=== PATIENT | female | born 1980 | race Caucasian/White ===

== ENCOUNTER → 2018-09-25 06:56 | Outpatient (CLI) | payer OTHER, SELFPAY ==
[2018-09-25 08:18] LABS: Add Manual Diff / Slide Review NO; Basophils Percent Auto 0.5 % (0-2); Hematocrit 41.3 % (36-46); Hemoglobin 14.4 g/dL (12.0-16.0); Lymphocytes Percent Auto 33.8 % (25-40); Mean Corpuscular HGB Conc 34.9 % (30-36); Mean Corpuscular Hemoglobin 31.6 PG (26-34); Mean Corpuscular Volume 90.5 fL (80-100); Monocytes Percent Auto 6.1 % (3-14); Neutrophils Absolute Auto 4700 /uL (3000-5900); Neutrophils Percent Auto 57.6 % (50-75); Platelet Count 230 X10^3/uL (150-400); Red Blood Cell Count 4.57 X10^6/uL (4.0-5.2); Red Cell Distribution Width 12.8 % (11.6-14.8); White Blood Cell Count 8.1 X10^3/uL (4.5-11.0)
[2018-09-25 08:35] LABS: Alanine Aminotransferase 24 IU/L (9-52); Albumin 4.4 g/dL (3.5-5.0); Albumin Globulin Ratio 1.6 (1.0-2.8); Alkaline Phosphatase 73 U/L (38-126); Aspartate Aminotransferase 21 IU/L (14-36); BUN Creatinine Ratio 13.8 (6-22); Bilirubin Total 0.7 mg/dL (0.2-1.3); Blood Urea Nitrogen 11 mg/dL (7-17); Calcium 9.1 mg/dL (8.4-10.2); Carbon Dioxide 24 mmol/L (22-32); Chloride 104 mmol/L (98-107); Cholesterol 179 mg/dL (140-199); Estimated Glomerular Filt Rate > 60.0 mL/min (>60); Globulin 2.8 g/dL (1.7-4.1); Glucose 156 mg/dL (70-100); HDL Cholesterol 44 mg/dL (40-60); HEMOLYSIS < 15 (0-50); LDL Cholesterol Calculated 108 mg/dL (<100); Potassium 4.4 mmol/L (3.4-5.1); Sodium 140 mmol/L (137-145); Total Protein 7.2 g/dL (6.3-8.2); Triglycerides 136 mg/dL (35-150)
[2018-09-25 08:40] LABS: Hemoglobin A1C% w Est Avg Glu 6.9 % (4.0-6.0)
[2018-09-25 09:04] LABS: Thyroid Stimulating Hormone 3.65 uIU/mL (0.47-4.68)
[2018-09-25 12:19] LABS: Creatinine Urine Random 243.8 mg/dL
[2018-09-25 12:24] LABS: Microalbumi Creatinin Ratio Ur 4.5 ug/mg CR (<30); Microalbumin Urine Random 1.1 mg/dL (0-1.6)
== END ==
PROVIDERS: PCP Internal Medicine; Visit Provider Internal Medicine
DX: E03.9 Hypothyroidism, unspecified (principal); E11.9 Type 2 diabetes mellitus without complications
CPT/HCPCS: 36415; 80053; 80061; 82043; 82570; 83036; 84443; 85025

== ENCOUNTER → 2019-09-25 08:58 | Outpatient (CLI) | payer OTHER, SELFPAY ==
--- NOTE | 2019-09-25 | DI.MG.S_ITS ---
BILATERAL DIGITAL SCREENING MAMMOGRAM 3D/2D WITH CAD: 09/25/2019 CLINICAL: Routine screening. Baseline exam. Family history of breast cancer. No prior exams were available for comparison. There are scattered fibroglandular elements in both breasts. Current study was also evaluated with a Computer Aided Detection (CAD) system. There is a possible 0.6 cm irregular low density focal asymmetry in the right breast at 4 o'clock posterior depth. No other significant masses, calcifications, or other findings are seen in either breast. IMPRESSION: INCOMPLETE: NEEDS ADDITIONAL IMAGING EVALUATION The possible 0.6 cm irregular low density focal asymmetry in the right breast is indeterminate. Additional views with possible ultrasound are recommended. This exam was interpreted at Station ID: [id number]. NOTE: For mammograms, a report in lay terms will be sent to the patient. Approximately 15% of breast malignancies will not be visualized mammographically. In the management of a palpable breast mass, a negative mammogram must not discourage biopsy of a clinically suspicious lesion. Electronically Signed By: Mateus kendall/joy:09/27/2019 06:59:54 letter sent: Additional Imaging Needed ACR BI-RADS Category 0: Incomplete 3340F
== END ==
PROVIDERS: PCP Internal Medicine; Visit Provider Internal Medicine
DX: Z12.31 Encounter for screening mammogram for malignant neoplasm of breast (principal); Z80.3 Family history of malignant neoplasm of breast
CPT/HCPCS: 77063; 77067

== ENCOUNTER → 2019-10-13 12:40 | Outpatient (CLI) | payer OTHER, SELFPAY ==
--- NOTE | 2019-10-13 | DI.MG.S_ITS ---
UNILATERAL RIGHT DIGITAL DIAGNOSTIC MAMMOGRAM 3D/2D WITH ADDITIONAL VIEWS: 10/13/2019 CLINICAL: Additional evaluation requested from prior study. Comparison is made to exam dated: 09/25/2019 [facility]. There are scattered fibroglandular elements in right breast. The previously described 0.6 cm irregular low density focal asymmetry in the right breast at 4 o'clock posterior depth persists but appears less prominent. No other significant masses or calcifications are seen in the breast. IMPRESSION: INCOMPLETE: NEEDS ADDITIONAL IMAGING EVALUATION The 0.6 cm irregular low density focal asymmetry in the right breast is indeterminate. Further evaluation with sonogram is recommended which is scheduled to immediately follow this examination. This exam was interpreted at Station ID: [id number]. NOTE: For mammograms, a report in lay terms will be sent to the patient. Approximately 15% of breast malignancies will not be visualized mammographically. In the management of a palpable breast mass, a negative mammogram must not discourage biopsy of a clinically suspicious lesion. Electronically Signed By: Mateus Cruz M.D. aty/:10/13/2019 13:25:19 ACR BI-RADS Category 0: Incomplete 3340F
--- NOTE | 2019-10-13 13:46 | DI.US.S_ITS ---
ULTRASOUND OF RIGHT BREAST AND AXILLA: 10/13/2019 CLINICAL: Patient returns today to evaluate a focal asymmetry in the right breast. Comparison is made to exams dated: 10/13/2019 mammogram and 09/25/2019 mammogram - [facility]. Color flow and real-time ultrasound of the right breast axilla were performed. Pendleton scale images of the real-time examination were reviewed. There is a 0.6 cm x 0.3 cm x 0.6 cm irregular mass with an indistinct and angular margin in the right breast at 3 o'clock posterior depth 6 cm from the nipple. This irregular mass is hypoechoic and heterogeneously echogenic. This correlates with mammography findings. Color flow imaging demonstrates that there is no vascularity present. No significant abnormalities were seen sonographically in the right axilla. IMPRESSION: SUSPICIOUS OF MALIGNANCY The 0.6 cm x 0.3 cm x 0.6 cm irregular mass in the right breast is suspicious of malignancy. An ultrasound guided biopsy is recommended. Findings and recommendations were discussed with the patient by Dr. Jj during today's visit. This exam was interpreted at Station ID: [id number]. Electronically Signed By: Mateus Cruz M.D. aty/:10/13/2019 14:25:21 letter sent: Biopsy Required Ultrasound BI-RADS: 4 Suspicious for malignancy
== END ==
PROVIDERS: PCP Internal Medicine; Visit Provider Internal Medicine
DX: R92.8 Other abnormal and inconclusive findings on diagnostic imaging of breast (principal); N63.15 Unspecified lump in the right breast, overlapping quadrants
CPT/HCPCS: 76642; 77065; G0279

== ENCOUNTER → 2019-11-05 07:42 | Outpatient (CLI) | payer OTHER, SELFPAY ==
--- NOTE | 2019-11-05 | DI.US.S_ITS ---
ULTRASOUND GUIDED BIOPSY RIGHT BREAST USING VACUUM DEVICE WITH MARKING DEVICE INSERTED AND POST DIGITAL MAMMOGRAPHIC IMAGIN11/05/2019 CLINICAL: Right breast mass. PATIENT CONSENT: Risks (minor bleeding, infection, vasovagal reaction and repeat procedure), benefits and alternatives were explained to the patient and written informed consent was obtained. Correlation is made to exams dated: 10/13/2019 ultrasound, 10/13/2019 mammogram, and 09/25/2019 mammogram - [facility]. An ultrasound guided biopsy using real-time ultrasound was performed for the concerning mass located in the right breast at 3 o'clock 6 cm from the nipple. This was described on the previous ultrasound report. The skin was prepped in the usual manner. 5 mL of 1% lidocaine and 5 mL of 1% lidocaine with epinephrine was used for local anesthesia. A skin ricky was made in the breast. The abnormality was approached from the lateral aspect. A 13 gauge biopsy needle was placed adjacent to the abnormality under ultrasound guidance. Once the needle was documented to be in the correct location, six specimens were obtained using the Mammotome biopsy system. A Vision biopsy marker clip was inserted into the biopsy cavity. A skin adhesive was applied to the access site. Post procedure digital mammographic imaging demonstrates the location device at the superior aspect of the biopsy cavity/postbiopsy changes. The specimens were sent to the laboratory for pathological analysis. IMPRESSION: ULTRASOUND GUIDED BIOPSY BENIGN Ultrasound guided biopsy of the mass in the right breast at 3 o'clock 6 cm from the nipple was successful with no apparent post procedure complications. Final pathology results per pathologist Dr. 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 Background breast with fibrocystic change including usual ductal hyerplasia, columnar cell change/columnar cell hyperplasia, and mild stromal fibrosis. Negative for atypia carcinoma in situ, and malignancy. Pathology findings are concordant with imaging. A follow-up diagnostic mammogram in 6 months with targeted ultrasound is recommended. These results will be communicated to the patient's referring provider. This exam was interpreted at Station ID: [id number]. Jan Jj M.D. ecl/:11/15/2019 16:20:59
--- NOTE | 2019-11-05 | PATH_ITS ---
[facility] Accession Number: [id number] . 01 Material submitted: . breast - RIGHT BREAST MASS 3:00 6 CM FN . 01 Clinical history: . RIGHT BREAST MASS . 01 Diagnosis: Right Breast, Mass At 3 O'clock, 6 cm From The Nipple, Biopsy: Breast parenchyma with pseudoangiomatous hyperplasia. Background breast with fibrocystic change including usual ductal hyperplasia, columnar cell change/columnar cell hyperplasia, and mild stromal fibrosis. Negative for atypia, carcinoma in situ, and malignancy. MNT 11/09/2019 1047 Local . 01 Comment: Clinical and Radiographic correlation is necessary. Deeper H/E levels are examined. . 01 Electronically signed: . Kathrine Esquivel MD, Pathologist NPI- [id number] . 01 Gross description: . Received in formalin, labeled Bx breast perc w mirtha, are multiple fragments of fibrofatty tissue (2.2 x 1.0 x 0.1 cm in aggregate). Entirely submitted in cassette A1. Note: The specimen was placed in formalin on 11/05/2019 with no time given. The approximate total fixation time in formalin is calculated to be 38 hours and 30 minutes. ([id number]) /FRR 11/06/2019 0959 Local . 01 Microscopic: . Microcalcifications and/or polarizable crystal material are not identified on H/E tissue examination. . 01 Pathologist provided ICD-10: N63.10 . 01 CPT . 290864 Performed at: 01 [facility] [address], [place], [place] [id number] MD Justus Guevara MD Phone: [phone]
--- NOTE | 2019-11-05 | DI.MG.S_ITS ---
UNILATERAL RIGHT DIGITAL DIAGNOSTIC MAMMOGRAM POST-NEEDLE BIOPSY: 11/05/2019 CLINICAL: Right breast mass post biopsy clip imaging. Comparison is made to exams dated: 11/05/2019 ultrasound biopsy, 10/13/2019 ultrasound, 10/13/2019 mammogram, and 09/25/2019 mammogram - [facility]. There are scattered fibroglandular elements in right breast. Post procedure digital mammographic imaging demonstrates the location device/biopsy clip within the medial right breast. IMPRESSION: POST PROCEDURE MAMMOGRAM FOR MARKER PLACEMENT Post procedure digital mammographic imaging demonstrates the location device/biopsy clip within the medial right breast. This exam was interpreted at Station ID: [id number]. NOTE: For mammograms, a report in lay terms will be sent to the patient. Approximately 15% of breast malignancies will not be visualized mammographically. In the management of a palpable breast mass, a negative mammogram must not discourage biopsy of a clinically suspicious lesion. Electronically Signed By: Jan Jj M.D. ecl/:11/09/2019 08:41:48 ACR BI-RADS Category Post-procedure mammogram for marker placement
== END ==
PROVIDERS: PCP Internal Medicine; Visit Provider Internal Medicine
DX: N60.31 Fibrosclerosis of right breast (principal)
CPT/HCPCS: 19083; 77065

== ENCOUNTER → 2020-08-22 09:15 | Outpatient (CLI) | payer OTHER, SELFPAY ==
--- NOTE | 2020-08-22 | DI.US.S_ITS ---
ULTRASOUND OF RIGHT BREAST: 08/22/2020 CLINICAL: 6 month follow-up biopsy. Comparison is made to exams dated: 08/22/2020 mammogram, 11/05/2019 mammogram, 11/05/2019 ultrasound biopsy, and 10/13/2019 [facility]. Real-time ultrasound of the right breast was performed on the areas of interest. Pendleton scale images of the real-time examination were reviewed. There is a 0.5 cm mass in the right breast at 3 o'clock middle depth. This mass is hypoechoic. There is an associated biopsy clip. IMPRESSION: BENIGN There is no sonographic evidence of malignancy. The 0.5 cm mass in the right breast which was previously biopsied and demonstrated to represent fibrocystic change including usual ductal hyerplasia, columnar cell change/columnar cell hyperplasia, and mild stromal fibrosis, is benign. A 1 year screening mammogram is recommended. This exam was interpreted at Station ID: [id number]. Electronically Signed By: Amanda sesay/:08/22/2020 11:48:15 letter sent: Normal Exam Ultrasound BI-RADS: 2 Benign
--- NOTE | 2020-08-22 | DI.MG.S_ITS ---
BILATERAL DIGITAL DIAGNOSTIC MAMMOGRAM 3D/2D SHORT-TERM FOLLOW-UP: 08/22/2020 CLINICAL: Patient returns for a short term follow up of the right breast, due for bilateral exam. Comparison is made to exams dated: 11/05/2019 mammogram, 11/05/2019 ultrasound biopsy, 10/13/2019 ultrasound, and 10/13/2019 mammogram - [facility]. There are scattered fibroglandular elements in both breasts. There is a biopsy clip in the right breast. No significant masses, calcifications, or other findings are seen in either breast. IMPRESSION: INCOMPLETE: NEEDS ADDITIONAL IMAGING EVALUATION A targeted ultrasound of the right breast is recommended to evaluate the previous biopsy site and will be performed immediately following this exam. This exam was interpreted at Station ID: [id number]. NOTE: For mammograms, a report in lay terms will be sent to the patient. Approximately 15% of breast malignancies will not be visualized mammographically. In the management of a palpable breast mass, a negative mammogram must not discourage biopsy of a clinically suspicious lesion. Electronically Signed By: Amanda Medina M.D. lk/:08/22/2020 09:59:05 ACR BI-RADS Category 0: Incomplete 3340F
== END ==
PROVIDERS: PCP Internal Medicine; Referring Provider Internal Medicine; Visit Provider Internal Medicine
DX: R92.8 Other abnormal and inconclusive findings on diagnostic imaging of breast (principal); N60.31 Fibrosclerosis of right breast
CPT/HCPCS: 76642; 77066; G0279

== ENCOUNTER → 2021-02-09 10:12 | Outpatient (CLI) | payer OTHER, SELFPAY ==
--- NOTE | 2021-02-09 10:14 | DI.RAD.S_ITS ---
PROCEDURE: XR HAND RT 2V INDICATIONS: PAIN IN RT/LT HAND TECHNIQUE: 2 views of the hand(s) acquired. COMPARISON: None. FINDINGS: Bones: No fractures or dislocations. Carpal bones are normally aligned. No suspicious bony lesions. Soft tissues: No suspicious soft tissue calcifications. IMPRESSION: No fracture. No osseous lesion. If symptoms and/or clinical suspicion for pathology persists, further assessment with repeat radiographs (7-10 days) or advanced imaging (e.g. CT, MRI or bone scan) should be considered. Dictated by: Dawn George MD, PhD on 02/09/2021 at 14:41 Approved by: Dawn George MD, PhD on 02/09/2021 at 14:42
--- NOTE | 2021-02-09 10:14 | DI.RAD.S_ITS ---
PROCEDURE: XR HAND LT 2V INDICATIONS: PAIN IN RT/LT HAND TECHNIQUE: 2 views of the hand(s) acquired. COMPARISON: None. FINDINGS: Bones: No fractures or dislocations. Carpal bones are normally aligned. No suspicious bony lesions. Soft tissues: No suspicious soft tissue calcifications. IMPRESSION: No fracture. No osseous lesion. If symptoms and/or clinical suspicion for pathology persists, further assessment with repeat radiographs (7-10 days) or advanced imaging (e.g. CT, MRI or bone scan) should be considered. Dictated by: Dawn George MD, PhD on 02/09/2021 at 14:40 Approved by: Dawn George MD, PhD on 02/09/2021 at 14:41
== END ==
PROVIDERS: PCP Internal Medicine; Referring Provider Student in an Organized Health Care Education/Training Program; Visit Provider Student in an Organized Health Care Education/Training Program
DX: M79.641 Pain in right hand (principal); M79.642 Pain in left hand
CPT/HCPCS: 73120

== ENCOUNTER → 2021-08-24 15:37 | Outpatient (CLI) | payer OTHER, SELFPAY ==
--- NOTE | 2021-08-24 | DI.MG.S_ITS ---
BILATERAL DIGITAL SCREENING MAMMOGRAM 3D/2D WITH CAD: 08/24/2021 CLINICAL: Routine screening. Family history of breast cancer. Comparison is made to exams dated: 08/22/2020 ultrasound, 08/22/2020 mammogram, 11/05/2019 mammogram, 10/13/2019 mammogram, and 09/25/2019 mammogram - [facility]. There are scattered fibroglandular elements in both breasts. Current study was also evaluated with a Computer Aided Detection (CAD) system. There is a biopsy clip in the right breast. No significant masses, calcifications, or other findings are seen in either breast. There has been no significant interval change. IMPRESSION: NEGATIVE There is no mammographic evidence of malignancy. A 1 year screening mammogram is recommended. This exam was interpreted at Station ID: [id number]. NOTE: For mammograms, a report in lay terms will be sent to the patient. Approximately 15% of breast malignancies will not be visualized mammographically. In the management of a palpable breast mass, a negative mammogram must not discourage biopsy of a clinically suspicious lesion. Electronically Signed By: Brendon Reynolds M.D., jr/joy:08/24/2021 16:19:30 letter sent: Normal Exam ACR BI-RADS Category 1: Negative [id number]
== END ==
PROVIDERS: PCP Internal Medicine; Referring Provider Internal Medicine; Visit Provider Internal Medicine
DX: Z12.31 Encounter for screening mammogram for malignant neoplasm of breast (principal); Z80.3 Family history of malignant neoplasm of breast
CPT/HCPCS: 77063; 77067

== ENCOUNTER → 2022-02-06 09:18 | Outpatient (CLI) | payer OTHER, SELFPAY | PROVIDERS: PCP Internal Medicine; Visit Provider Nurse Practitioner Family | DX: R10.9 Unspecified abdominal pain (principal) | CPT/HCPCS: 87086 ==

== ENCOUNTER 2022-02-06 10:20 | Emergency (ER) | payer OTHER, SELFPAY ==
[2022-02-06 10:45] VITALS: BP 143/81; PULSE 91; RESP 16; TEMP 36.6; O2SAT 98; BMI 34.4
[2022-02-06 10:58] LABS: Appearance Urine UA CLEAR; Bilirubin Urine UA NEGATIVE (NEGATIVE); Color Urine UA YELLOW; Glucose Urine UA 2+ g/dL (Negative); Ketones Urine UA TRACE (NEGATIVE); Leukocyte Esterase Urine UA NEGATIVE (NEGATIVE); Nitrite Urine UA NEGATIVE (Negative); Occult Blood Urine UA 1+ (Negative); Protein Urine UA NEGATIVE (Negative); Specific Gravity Urine UA 1.015 (1.000-1.035); Urobilinogen Urine UA 0.2 E.U./dL (0.2)
[2022-02-06 10:59] LABS: pH Urine UA 5.5 (4.5-8.0)
[2022-02-06 11:03] LABS: Bacteria Urine None Seen; Culture Indicated Urine Cult Not Indicated; RBC Urine None Seen (0-5/HPF); Urine Comments Microscopic Normal; WBC Urine None Seen (0-5/HPF)
[2022-02-06 11:07] VITALS: BP 141/85; PULSE 86; RESP 18; TEMP 36.7; O2SAT 98
[2022-02-06 11:20] LABS: Pregnancy Test Urine Negative (Negative)
--- NOTE | 2022-02-06 11:31 | ED.BACK ---
HPI - Back Pain/Injury General Chief Complaint: Urogenital-Female Stated Complaint: Back pain- R/O kidney stones- sent by [facility] Time Seen by Provider: 02/06/22 11:03 Source: patient History of Present Illness HPI Narrative: Patient sent here from urgent care. Patient had sudden onset at 3:00 a.m. this morning/night for left flank pain. No nausea sweating. No hematuria no urinary complaints. No vomiting. No abdominal pain or chest pain. Patient states pain much better now. No prior history of kidney stones. No numbness tingling or weakness. Related Data Previous Rx's Medication Instructions Recorded montelukast 10 mg tablet 10 mg PO QDAY #90 tab 09/23/17 (Singulair) clindamycin phosphate 1 % topical 0 TOPICAL BID PRN #30 ml 12/29/17 solution Verio Test Strips 1 unit TOP 5XD #150 str 04/02/18 naproxen 500 mg tablet 500 mg PO BID #30 tab 05/14/18 fluticasone propionate 50 2 spray NASAL DAILY #9.9 gram 10/07/18 mcg/actuation nasal spray,suspension glyburide 2.5 mg tablet 2.5 mg PO HS #90 tab 10/07/18 levothyroxine 75 mcg tablet 75 mcg PO QAM #90 tab 10/07/18 (Synthroid) metformin 850 mg tablet 850 mg PO QDAY #90 tab 10/07/18 Allergies Allergy/AdvReac Type Severity Reaction Status Date / Time bupropion [BUPROPION] Allergy Mild HIVES Unverified 02/06/22 09:31 miconazole [MICONAZOLE] Allergy Mild swelling Unverified 02/06/22 09:31 and itching Review of Systems Review of Systems Narrative: GENERAL: Denies chills, fatigue, malaise, fever, sweats. HEENT: Denies sinus pain, ear pain, sore throat RESPIRATORY: Denies dyspnea, cough CARDIOVASCULAR: Denies chest pain, palpitations GASTROINTESTINAL: Denies nausea, vomiting, abdominal pain : Denies dysuria, frequency, hematuria MUSCULOSKELETAL: denies muscle or bony pain, positive flank pain SKIN: Denies rash, skin lesions NEUROLOGIC: Denies weakness, numbness ROS Unobtainable: All systems reviewed & are unremarkable except as noted in HPI and below Patient History Medical History (Updated 02/06/22 @ 14:00 by Jarrett Poe MD) Abnormal Pap smear of cervix (~1996) Ankle pain (~2014) Depression (~1997) Dysfunctional uterine bleeding (~2000) Heavy menstrual period (~1990) Hemorrhoid (~1997) Irregular menstrual cycle (~2000) Obstructive sleep apnea of adult (~01/2019) Painful menstrual periods (~1992) Plantar warts (~2007) Seasonal allergies (~1987) Snoring (~11/2016) Vision disorder Surgical History Anesthesia Status post tubal ligation (09/14/04) Family History Father Age: 71 Colon cancer Type 2 diabetes mellitus Grandmother Breast CA Mother Age: 66 Hypertension Stroke Grandfather Age: 78 Mesothelioma Cancer Grandmother Age: 95 Diabetes mellitus Sister Age: 47 Mental health problem Sister Age: 40 Cervical cancer Social History Smoking Status: Never smoker Smoking Status: Never smoker alcohol intake frequency: holidays/special occasions only Substance Use Type: does not use Exam Narrative Exam Narrative: GENERAL: in no distress, not toxic not dyspneic HEAD: Normocephalic. EYES: Pupils equal round No scleral icterus. ENT: Mucous membranes moist. NECK: Trachea midline. CARDIOVASCULAR: Regular rate and rhythm without murmurs RESPIRATORY: Clear to auscultation. Breath sounds equal bilaterally. No wheezes, rales, or rhonchi. GASTROINTESTINAL: Abdomen soft, non-tender EXTREMITIES: No gross deformities. BACK: No flank tenderness. No rash, no CVA tenderness NEURO: AOx4. SKIN: Warm and dry PSYCH: Not anxious, is cooperative Initial Vital Signs Initial Vital Signs: Vital Signs Temperature 98 F 02/06/22 10:45 Pulse Rate 91 H 02/06/22 10:45 Respiratory Rate 16 02/06/22 10:45 Blood Pressure 143/81 H 02/06/22 10:45 Pulse Oximetry 98 02/06/22 10:45 Course Course Course Narrative: No new issues during course of stay Orders Ordered: ED Orders 02/06/22 10:55 Urinalysis and Microscopic Stat 02/06/22 11:14 Test Urine Stat 02/06/22 11:33 CT kidney ureter bladder (KUB) Stat 02/06/22 13:00 CBC Auto Diff [Complete Blood Count AUTO DIFF] Stat CMP [Comprehensive Metabolic Panel] Stat Reevaluation(s) Reevaluation #1: Patient states pain 3/10. Does not want anything for pain. Reviewed results with patient and my discussion with Dr. Canales. Understands results and likely what happened this morning. She desires discharge home. Time: 13:58 Consultations Consultation #1: Spoke with Dr. Canales, urology, he has reviewed patient's laboratory studies and imaging. He has looked at the CT scan images. He does not feel this is acute. Patient has had hydronephrosis for or while. Unrelated to today's symptoms. However likely passed a small kidney stone. Appropriate for discharge home. Follow-up in his office. Time: 13:56 Vital Signs Vital signs: Vital Signs - 8 hr 02/06/22 10:45 02/06/22 11:07 02/06/22 14:10 Temperature 98 F 98.0 F Pulse Rate 91 H 86 70 Respiratory Rate 16 18 18 Blood Pressure 143/81 H 141/85 H 135/79 Pulse Oximetry 98 98 MDM - Back Pain/Injury Differential Diagnosis Differential diagnosis: Likely renal colic, pyelonephritis and other (Kidney stone/ureteral stone) Lab Data Result diagrams: 02/06/22 13:00 02/06/22 13:00 Labs: Lab Results 02/06/22 02/06/22 02/06/22 Range/Units 10:55 11:14 13:00 WBC 12.1 H (4.5-11.0) X10^3/uL RBC 4.53 (4.0-5.2) X10^6/uL Hgb 14.2 (12.0-16.0) g/dL Hct 41.0 (36-46) % MCV 90.7 (80-100) fL MCH 31.5 (26-34) PG MCHC 34.7 (30-36) % RDW 12.7 (11.6-14.8) % Plt Count 255 (150-400) X10^3/uL Neut % (Auto) 84.3 H (50-75) % Lymph % (Auto) 10.9 L (25-40) % [place] % (Auto) 4.1 (3-14) % Eos % (Auto) 0.1 L (2-4) % Baso % (Auto) 0.6 (0-2) % Neut # (Auto) 82062 H (5244-1757) /uL Lymph # (Auto) 1300 (8339-4620) /uL [place] # (Auto) 500 (0-900) /uL Eos # (Auto) 0 (0-450) /uL Baso # (Auto) 100 (0-100) /uL Sodium (137-145) mmol/L Potassium (3.4-5.1) mmol/L Chloride (98-107) mmol/L Carbon Dioxide (22-32) mmol/L BUN (7-17) mg/dL Creatinine (0.52-1.04) mg/dL Estimated GFR (>60) mL/min BUN/Creatinine Ratio (6-22) Glucose (70-100) mg/dL Calcium (8.4-10.2) mg/dL Total Bilirubin (0.2-1.3) mg/dL AST (14-36) IU/L ALT (<35) IU/L Alkaline Phosphatase (38-126) U/L Total Protein (6.3-8.2) g/dL Albumin (3.5-5.0) g/dL Globulin (1.7-4.1) g/dL Albumin/Globulin Ratio (1.0-2.8) Urine Color Yellow Urine Appearance Clear Urine pH 5.5 (4.5-8.0) Ur Specific [place] 1.015 (1.000-1.035) Urine Protein Negative (Negative) Urine Glucose (UA) 2+ H (Negative) g/dL Urine Ketones Trace H (NEGATIVE) Urine Occult Blood 1+ H (Negative) Urine Nitrate Negative (Negative) Urine Bilirubin Negative (NEGATIVE) Urine Urobilinogen 0.2 (0.2) E.U./dL Ur Leukocyte Esterase Negative (NEGATIVE) Urine RBC None seen (0-5/HPF) Urine WBC None seen (0-5/HPF) Urine Bacteria None seen (None) Ur Culture Indicated? Cult not indicated Micro UA Comment Microscopic normal Urine Test Negative (Negative) 02/06/22 Range/Units 13:00 WBC (4.5-11.0) X10^3/uL RBC (4.0-5.2) X10^6/uL Hgb (12.0-16.0) g/dL Hct (36-46) % MCV (80-100) fL MCH (26-34) PG MCHC (30-36) % RDW (11.6-14.8) % Plt Count (150-400) X10^3/uL Neut % (Auto) (50-75) % Lymph % (Auto) (25-40) % [place] % (Auto) (3-14) % Eos % (Auto) (2-4) % Baso % (Auto) (0-2) % Neut # (Auto) (5518-5941) /uL Lymph # (Auto) (0146-5470) /uL [place] # (Auto) (0-900) /uL Eos # (Auto) (0-450) /uL Baso # (Auto) (0-100) /uL Sodium 137 (137-145) mmol/L Potassium 4.5 (3.4-5.1) mmol/L Chloride 106 (98-107) mmol/L Carbon Dioxide 21 L (22-32) mmol/L BUN 13 (7-17) mg/dL Creatinine 1.00 (0.52-1.04) mg/dL Estimated GFR > 60.0 (>60) mL/min BUN/Creatinine Ratio 13.0 (6-22) Glucose 201 H (70-100) mg/dL Calcium 9.4 (8.4-10.2) mg/dL Total Bilirubin 0.5 (0.2-1.3) mg/dL AST 26 (14-36) IU/L ALT 23 (<35) IU/L Alkaline Phosphatase 77 (38-126) U/L Total Protein 7.6 (6.3-8.2) g/dL Albumin 4.7 (3.5-5.0) g/dL Globulin 2.9 (1.7-4.1) g/dL Albumin/Globulin Ratio 1.6 (1.0-2.8) Urine Color Urine Appearance Urine pH (4.5-8.0) Ur Specific [place] (1.000-1.035) Urine Protein (Negative) Urine Glucose (UA) (Negative) g/dL Urine Ketones (NEGATIVE) Urine Occult Blood (Negative) Urine Nitrate (Negative) Urine Bilirubin (NEGATIVE) Urine Urobilinogen (0.2) E.U./dL Ur Leukocyte Esterase (NEGATIVE) Urine RBC (0-5/HPF) Urine WBC (0-5/HPF) Urine Bacteria (None) Ur Culture Indicated? Micro UA Comment Urine Test (Negative) Imaging Data CT scan - abdomen/pelvis: Radiologist's Impression: [address] [address] [address] Scan Report Signed Patient: Zarina Padilla MR#: [id number] : 1980 Acct:[id number] Age/Sex: 41 / F Date of Service: 02/06/22 Loc: ED Accession Number: [id number] ?? Procedure: CT kidney ureter bladder (KUB) Ordering Provider: Jarrett Poe MD PROCEDURE:? CT KIDNEY URETER BLADDER (KUB) ? INDICATIONS:? Left flank pain ? TECHNIQUE:? Axial sections were acquired from the lung bases to the pubic symphysis.? Coronal and sagittal reformats were performed.? For radiation dose reduction, the following was used: ?automated exposure control, adjustment of mA and/or kV according to patient size.? ? COMPARISON:? None. ? FINDINGS:? Image quality:? Excellent.? ? Lung bases:? Unremarkable.? Tiny hiatal hernia.? Heart:? Normal size.? Trace pericardial effusion. ? URINARY: Right Kidney: ? No stones or hydronephrosis.? Right Ureter:? No hydroureter.? ? Left Kidney:? There is a 4 mm nonobstructive stone in left kidney.? Tlhszuhp-qn-cdawjd left hydronephrosis and perinephric stranding.? A small amount of perinephric fluid is present.? No obstructive stone is identified.? Left Ureter:? No ureteral stones or hydroureter.? ? Bladder:? Normal wall thickness. No stones. ? ? ? ABDOMEN: Liver:? Normal in size.? Hepatic steatosis.? ? Gallbladder:? Unremarkable.? ? Biliary ducts:? Unremarkable.? ? Pancreas:? Unremarkable.? ? Spleen:? Unremarkable.? ? Adrenal Glands:? Unremarkable.? ? ? Stomach and Bowel:? Stomach, small bowel loops, and colon are unremarkable.? Peritoneum:? No abnormal intraperitoneal fluid.? No free air.? ? Ventral Wall: ? Fat containing umbilical hernia.? Abdominal Nodes:? No enlarged retroperitoneal or mesenteric lymph nodes.? Vessels:? Aorta and inferior vena cava are normal in size.? ? PELVIS: Pelvic Organs:? Uterus with an IUD.? Ovaries are unremarkable.? There is no pathological pelvic fluid.? ? Pelvic Nodes: Unremarkable. Miscellaneous: No inguinal hernias are seen. ? ? ? Bones:? Unremarkable. ? IMPRESSION:? ? 1. Umzmbves-zv-dmhqbd left hydronephrosis and perinephric stranding with a small amount of perinephric fluid.? No obstructive stone is identified.? The left ureter is normal in caliber.? The CT findings suggest high-grade left UPJ obstruction. ? 2. A 4 mm nonobstructive stone in the inferior pole of the left kidney. ? 3. Hepatic steatosis.? ? ? The result was discussed with Dr. Poe. ? Dictated by: Carmelina Knox M.D. on 02/06/2022 at 11:48 ? ? Approved by: Carmelina Knox M.D. on 02/06/2022 at 11:57 ? MDM Narrative Medical decision making narrative: Appropriate for discharge home. Laboratory studies and imaging otherwise reassuring. I did review with urologist. CT and results are reassuring according to him. Appropriate for discharge home and follow-up in his office. Patient likely passed small kidney stone today. Return precautions reviewed patient. She desires discharge home. No prescriptions indicated. Discharge Plan Departure Patient Disposition: Home Clinical Impression: Acute left flank pain, Hydronephrosis Instructions: Hydronephrosis -- Adult, DI for Kidney Stones Activity Restrictions/Additional Instructions: Call provided urology office, Dr. Canales, today or tomorrow for office follow-up appointment next week. Keep well hydrated. Return if worse or any questions or concerns. May use ibuprofen for pain. May continue home medications. Prescriptions: No Action montelukast [Singulair] 10 MG tablet 10 mg PO QDAY Qty: 90 3RF clindamycin phosphate 1 % solution 0 Topical BID PRNQty: 30 0RF Verio Test Strips 1 unit TOP 5XD Qty: 150 3RF naproxen 500 mg tablet 500 mg PO BID Qty: 30 0RF glyburide 2.5 mg tablet 2.5 mg PO HS Qty: 90 3RF levothyroxine [Synthroid] 75 mcg tablet 75 mcg PO QAM Qty: 90 3RF metformin 850 mg tablet 850 mg PO QDAY Qty: 90 3RF fluticasone propionate 50 mcg/actuation spray,suspension 2 spray NASAL DAILY Qty: 9.9 3RF Rx Instructions: administer into each nostril Referrals: Jarrett Canales MD [Physician] - Ariana Olvia ARNP [Primary Care Provider] -
--- NOTE | 2022-02-06 11:33 | DI.CT.S_ITS ---
PROCEDURE: CT KIDNEY URETER BLADDER (KUB) INDICATIONS: Left flank pain TECHNIQUE: Axial sections were acquired from the lung bases to the pubic symphysis. Coronal and sagittal reformats were performed. For radiation dose reduction, the following was used: automated exposure control, adjustment of mA and/or kV according to patient size. COMPARISON: None. FINDINGS: Image quality: Excellent. Lung bases: Unremarkable. Tiny hiatal hernia. Heart: Normal size. Trace pericardial effusion. URINARY: Right Kidney: No stones or hydronephrosis. Right Ureter: No hydroureter. Left Kidney: There is a 4 mm nonobstructive stone in left kidney. Qtvjlbdi-ob-airhvo left hydronephrosis and perinephric stranding. A small amount of perinephric fluid is present. No obstructive stone is identified. Left Ureter: No ureteral stones or hydroureter. Bladder: Normal wall thickness. No stones. ABDOMEN: Liver: Normal in size. Hepatic steatosis. Gallbladder: Unremarkable. Biliary ducts: Unremarkable. Pancreas: Unremarkable. Spleen: Unremarkable. Adrenal Glands: Unremarkable. Stomach and Bowel: Stomach, small bowel loops, and colon are unremarkable. Peritoneum: No abnormal intraperitoneal fluid. No free air. Ventral Wall: Fat containing umbilical hernia. Abdominal Nodes: No enlarged retroperitoneal or mesenteric lymph nodes. Vessels: Aorta and inferior vena cava are normal in size. PELVIS: Pelvic Organs: Uterus with an IUD. Ovaries are unremarkable. There is no pathological pelvic fluid. Pelvic Nodes: Unremarkable. Miscellaneous: No inguinal hernias are seen. Bones: Unremarkable. IMPRESSION: 1. Ykyprvps-vu-vlomki left hydronephrosis and perinephric stranding with a small amount of perinephric fluid. No obstructive stone is identified. The left ureter is normal in caliber. The CT findings suggest high-grade left UPJ obstruction. 2. A 4 mm nonobstructive stone in the inferior pole of the left kidney. 3. Hepatic steatosis. The result was discussed with Dr. Poe. Dictated by: Carmelina Knox M.D. on 02/06/2022 at 11:48 Approved by: Carmelina Knox M.D. on 02/06/2022 at 11:57
[2022-02-06 13:16] LABS: Add Manual Diff / Slide Review NO; Basophils Absolute Auto 100 /uL (0-100); Basophils Percent Auto 0.6 % (0-2); Eosinophils Absolute Auto 0 /uL (0-450); Eosinophils Percent Auto 0.1 % (2-4); Hemoglobin 14.2 g/dL (12.0-16.0); Lymphocytes Absolute Auto 1300 /uL (1100-4500); Lymphocytes Percent Auto 10.9 % (25-40); Mean Corpuscular HGB Conc 34.7 % (30-36); Mean Corpuscular Hemoglobin 31.5 PG (26-34); Mean Corpuscular Volume 90.7 fL (80-100); Monocytes Absolute Auto 500 /uL (0-900); Monocytes Percent Auto 4.1 % (3-14); Neutrophils Absolute Auto 10200 /uL (1500-7000); Neutrophils Percent Auto 84.3 % (50-75); Platelet Count 255 X10^3/uL (150-400); Red Blood Cell Count 4.53 X10^6/uL (4.0-5.2); Red Cell Distribution Width 12.7 % (11.6-14.8); White Blood Cell Count 12.1 X10^3/uL (4.5-11.0)
[2022-02-06 13:27] LABS: Alanine Aminotransferase 23 IU/L (<35); Albumin 4.7 g/dL (3.5-5.0); Albumin Globulin Ratio 1.6 (1.0-2.8); Alkaline Phosphatase 77 U/L (38-126); Aspartate Aminotransferase 26 IU/L (14-36); Bilirubin Total 0.5 mg/dL (0.2-1.3); Blood Urea Nitrogen 13 mg/dL (7-17); Calcium 9.4 mg/dL (8.4-10.2); Carbon Dioxide 21 mmol/L (22-32); Chloride 106 mmol/L (98-107); Estimated Glomerular Filt Rate > 60.0 mL/min (>60); Globulin 2.9 g/dL (1.7-4.1); Glucose 201 mg/dL (70-100); HEMOLYSIS < 15 (0-50); Potassium 4.5 mmol/L (3.4-5.1); Sodium 137 mmol/L (137-145); Total Protein 7.6 g/dL (6.3-8.2)
[2022-02-06 14:10] VITALS: BP 135/79; PULSE 70; RESP 18
== END 2022-02-06 14:12 | disposition home or self-care (01) ==
PROVIDERS: Emergency Provider Emergency Medicine; PCP Internal Medicine
DX: N13.30 Unspecified hydronephrosis (principal); N20.0 Calculus of kidney; R10.9 Unspecified abdominal pain
CPT/HCPCS: 74176; 80053; 81001; 81025; 85025; 87086; 99281; 99284

== ENCOUNTER → 2022-03-15 12:29 | Outpatient (CLI) | payer OTHER, SELFPAY ==
--- NOTE | 2022-03-15 12:29 | DI.US.S_ITS ---
PROCEDURE: US RENAL COMPLETE INDICATIONS: kidney stones TECHNIQUE: Real-time scanning was performed of the kidneys and bladder, with image documentation. COMPARISON: Merged With [facility], CT, CT KIDNEY URETER BLADDER (KUB), 02/06/2022, 11:33. FINDINGS: Kidneys: Kidneys are normal in size. Right kidney measures 12.0 cm long; left kidney measures 13.8 cm long. Right renal cortical thickness is 1.3 cm; left renal cortical thickness is 1.0 cm. The left kidney has moderate hydronephrosis. There is a peripelvic cyst versus pelviectasis measuring 6.8 x 4.9 cm. Renal cortical echotexture is normal. No hydronephrosis or nephrolithiasis. No suspicious solid mass lesions. Bladder: The bladder is empty. There are bilateral ureteral jets. Miscellaneous: No free pelvic fluid. IMPRESSION: Moderate left hydronephrosis and pelviectasis versus parapelvic cyst. The appearance is similar to prior CT on 02/06/2022. Dictated by: Ahmet Anguiano M.D. on 03/15/2022 at 14:16 Approved by: Ahmet Anguiano M.D. on 03/15/2022 at 14:22
== END ==
PROVIDERS: PCP Internal Medicine; Referring Provider Urology; Visit Provider Urology
DX: N13.30 Unspecified hydronephrosis (principal); R10.9 Unspecified abdominal pain
CPT/HCPCS: 76770

== ENCOUNTER → 2022-03-28 13:42 | Outpatient (CLI) | payer OTHER, SELFPAY ==
--- NOTE | 2022-03-28 13:43 | DI.NM.S_ITS ---
PROCEDURE: NM RENAL FUNCTION W LASIX RADIOPHARMACEUTICAL: 9.8 mCi Tc-99m MAG3 IV and 40 mg furosemide IV. INDICATIONS: Rule out UPJ obstruction left TECHNIQUE: The patient was hydrated orally before the examination was begun. After intravenous administration of Tc-99m MAG3, posterior abdominal radionuclide angiogram and sequential (1 minute each frame) renal images were obtained. A time-activity curve for each kidney was generated and analyzed. To evaluate for obstruction, the patient was given 40 mg furosemide via slow intravenous injection after the start of the examination. Sequential images were obtained for up to an additional 20 minutes. COMPARISON: [facility], CT, CT KIDNEY URETER BLADDER (KUB), 02/06/2022, 11:33. FINDINGS: Perfusion: There is normal vascular flow to both kidneys. Morphology: Both kidneys are normal in size and shape. There is dilatation of the left renal calices and renal pelvis. No dilatation identified in the right collecting system. The ureters and bladder fill with tracer, and appear normal. Function: Left kidney demonstrates delayed cortical tracer uptake with stsn-vw-rgke activity of 9 minutes. Right kidney demonstrates normal cortical tracer uptake, with mpmb-iv-tjux activity of 4 minutes. The right kidney contributes 50% of total renal function. The left kidney contributes 50% of total renal function. Lasix stimulation: After diuretic administration, there is prompt clearance of tracer activity from the right renal collecting system. There is reduced clearance of tracer activity from the left renal calices and renal pelvis. The half-time of emptying of tracer activity from the right pelvicaliceal system is 10 minutes. The half-time of emptying from the left pelvicaliceal system is 16 minutes. Normal emptying half-times are less than 10 minutes; borderline ranges are from 10 to 20 minutes. IMPRESSION: Findings consistent with left UPJ obstruction. Dictated by: Dawn George MD, PhD on 03/28/2022 at 16:06 Approved by: Dawn George MD, PhD on 03/28/2022 at 16:12
== END ==
LOC: NUCM 13:43
PROVIDERS: PCP Internal Medicine; Referring Provider Urology; Visit Provider Urology
DX: N13.30 Unspecified hydronephrosis (principal); Z87.898 Personal history of other specified conditions
CPT/HCPCS: 78708; A9562

== ENCOUNTER → 2022-07-09 13:51 | Outpatient (CLI) | payer OTHER, SELFPAY ==
--- NOTE | 2022-07-09 13:52 | DI.NM.S_ITS ---
PROCEDURE: [place] RENAL FUNCTION W LASIX RADIOPHARMACEUTICAL: 9.8 mCi Tc-99m MAG3 IV and 40 mg furosemide IV. INDICATIONS: Left renal pelvic dilation left flank pain TECHNIQUE: The patient was hydrated orally before the examination was begun. After intravenous administration of Tc-99m MAG3, posterior abdominal radionuclide angiogram and sequential (1 minute each frame) renal images were obtained. A time-activity curve for each kidney was generated and analyzed. To evaluate for obstruction, the patient was given 40 mg furosemide via slow intravenous injection after the start of the examination. Sequential images were obtained for up to an additional 20 minutes. COMPARISON: [place], [place], [place] RENAL FUNCTION W LASIX, 03/28/2022, 14:03. FINDINGS: Perfusion: There is normal vascular flow to both kidneys. Morphology: Left greater right pelviectasis. The ureters and bladder fill with tracer, and appear normal. Function: Both kidneys demonstrate slightly delayed time to peak activity between 7-8 minutes. The right kidney contributes 46 % of total renal function. The left kidney contributes 54 % of total renal function. Lasix stimulation: After diuretic administration, there is prompt clearance of radiotracer from the renal collecting system in the right kidney. Time of T half in the right is at 18 minutes (4 minutes after administration of the Lasix). There is marked delay in radiotracer clearance in the left kidney. Time of T half is greater than 30 minutes. Retention of tracer is seen in the renal cortex and the dilated renal pelvis Normal emptying half-times are less than 10 minutes; borderline ranges are from 10 to 20 minutes. IMPRESSION: Normal split function. Mildly delayed time to max for both kidneys at 7.5 minutes. Dilated left renal pelvis without ureteral dilation. Lasix stimulation without prompt clearance in the left kidney, compatible with obstruction. Normal radiotracer clearance in the right kidney following Lasix. Dictated by: Andrea Valdes M.D. on 07/09/2022 at 16:44 Approved by: Andrea Valdes M.D. on 07/10/2022 at 9:00
== END ==
PROVIDERS: PCP Internal Medicine; Referring Provider Urology; Visit Provider Urology
DX: N28.89 Other specified disorders of kidney and ureter (principal); R10.9 Unspecified abdominal pain
CPT/HCPCS: 78708; A9562

== ENCOUNTER → 2022-08-26 09:14 | Outpatient (CLI) | payer OTHER, SELFPAY ==
--- NOTE | 2022-08-26 | DI.MG.S_ITS ---
BILATERAL DIGITAL SCREENING MAMMOGRAM 3D/2D WITH CAD: 08/26/2022 CLINICAL: Routine screening. Family history of breast cancer. Comparison is made to exams dated: 08/24/2021 mammogram, 08/22/2020 mammogram, 11/05/2019 mammogram, and 09/25/2019 mammogram - [facility]. There are scattered areas of fibroglandular density in both breasts (category b / 25%-50% glandular tissue). Current study was also evaluated with a Computer Aided Detection (CAD) system. There is a biopsy clip in the right breast. No significant masses, calcifications, or other findings are seen in either breast. There has been no significant interval change. IMPRESSION: NEGATIVE There is no mammographic evidence of malignancy. A 1 year screening mammogram is recommended. Based on the Tyrer Cuzick model (a risk assessment model) the patient's lifetime risk is 9.6% and her 10 year risk is 1.4%. According to the ACR, ACS, and NCCN guidelines, an annual breast MRI exam along with mammogram is recommended if the patient's lifetime risk is 20% or greater. This exam was interpreted at Station ID: [id number]. NOTE: For mammograms, a report in lay terms will be sent to the patient. Approximately 15% of breast malignancies will not be visualized mammographically. In the management of a palpable breast mass, a negative mammogram must not discourage biopsy of a clinically suspicious lesion. Electronically Signed By: Amanda sesay/joy:08/26/2022 10:14:51 letter sent: Normal Exam ACR BI-RADS Category 1: Negative [id number]
== END ==
PROVIDERS: PCP Internal Medicine; Referring Provider Internal Medicine; Visit Provider Internal Medicine
DX: Z12.31 Encounter for screening mammogram for malignant neoplasm of breast (principal); Z80.3 Family history of malignant neoplasm of breast
CPT/HCPCS: 77063; 77067

== ENCOUNTER → 2022-10-11 12:19 | Outpatient (CLI) | payer OTHER, SELFPAY ==
--- NOTE | 2022-10-11 12:20 | DI.NM.S_ITS ---
PROCEDURE: [place] RENAL FUNCTION W LASIX RADIOPHARMACEUTICAL: 10.5 mCi Tc-99m MAG3 IV and 40 mg furosemide IV. INDICATIONS: Dilated left renal pelvis question of obstruction TECHNIQUE: The patient was hydrated orally before the examination was begun. After intravenous administration of Tc-99m MAG3, posterior abdominal radionuclide angiogram and sequential (1 minute each frame) renal images were obtained. A time-activity curve for each kidney was generated and analyzed. To evaluate for obstruction, the patient was given 40 mg furosemide via slow intravenous injection after the start of the examination. Sequential images were obtained for up to an additional 20 minutes. COMPARISON: [place], [place], [place] RENAL FUNCTION W LASIX, 03/28/2022, 14:03. [place], [place] RENAL FUNCTION W LASIX, 07/09/2022, 14:07. [facility], US, US RENAL COMPLETE, 03/15/2022, 12:35. [facility], CT, CT KIDNEY URETER BLADDER (KUB), 02/06/2022, 11:33. FINDINGS: Perfusion: There is normal vascular flow to both kidneys. Morphology: Both kidneys are normal in size and shape. Dilated left renal collecting system is seen. No dilated right renal collecting system. The ureters are not well seen. The bladder fill with tracer, and appear normal. Function: Both kidneys demonstrate normal cortical tracer uptake, with qjqt-xr-mina activity ranging from 3 to 5 minutes. The right kidney contributes 45.5% of total renal function. The left kidney contributes 54.5% of total renal function. Lasix stimulation: After diuretic administration, there is prompt clearance of tracer activity from the renal collecting systems in both kidneys. The half-time of emptying of tracer activity from the right pelvicaliceal system is 14.4 minutes. The half-time of emptying from the left pelvicaliceal system is 6.4 minutes. Normal emptying half-times are less than 10 minutes; borderline ranges are from 10 to 20 minutes. IMPRESSION: 1. Mild left UPJ obstruction. T1/2 of the left kidney is 14.4 minutes. 2. No right renal obstruction. 3. Split renal function: Right kidney 45.5%; left kidney 55.5%. Dictated by: Carmelina Knox M.D. on 10/11/2022 at 14:24 Approved by: Carmelina Knox M.D. on 10/11/2022 at 14:34
== END ==
PROVIDERS: PCP Internal Medicine; Referring Provider Urology; Visit Provider Urology
DX: N13.5 Crossing vessel and stricture of ureter without hydronephrosis (principal)
CPT/HCPCS: 78708; A9562

== ENCOUNTER → 2022-11-06 16:54 | Outpatient (CLI) | payer OTHER, SELFPAY ==
--- NOTE | 2022-11-06 16:55 | DI.US.S_ITS ---
PROCEDURE: US RENAL COMPLETE INDICATIONS: DILATED LEFT RENAL PELVIS ?OBSTRUCTION TECHNIQUE: Real-time scanning was performed of the kidneys and bladder, with image documentation. COMPARISON: [facility], CT, CT KIDNEY URETER BLADDER (KUB), 02/06/2022, 11:33. [facility], US, US RENAL COMPLETE, 03/15/2022, 12:35. FINDINGS: Kidneys: Redemonstration of moderate left hydronephrosis, not significantly changed compared to the prior study. Left kidney measures 11.1 cm in length. No evidence for renal stones or suspicious solid mass lesions. Renal cortex measures 1.6 cm in thickness. There is also left hydroureter proximally measuring up to 3.5 cm. More distal segments of the left ureter not able to be assessed secondary to overlying bowel gas. Right kidney measures 11.5 cm. No hydronephrosis. No evidence for renal stones or suspicious solid lesions. Renal cortex measures 1.3 cm in thickness. Bladder: Pre-void bladder volume is 47 mL. Post-void residual is 3 mL. Pre-void images demonstrate no intraluminal masses or stones. On pre-void images, bilateral ureteral jets were not visualized with color Doppler interrogation. (Of note, ureteral jets may not be detectable in up to 25% of cases due to insufficient differences in specific gravity between ureteral and bladder urine). Miscellaneous: No free pelvic fluid. Incidental note of diffusely increased echotexture of the liver without focal abnormalities consistent with chronic hepatocellular disease/hepatic steatosis. IMPRESSION: Persistent moderate left hydronephrosis and left hydroureter. This appears relatively similar compared to prior studies. No evidence for renal stones identified on the left. Unremarkable sonographic evaluation of the right kidney. Incidental note of hepatic steatosis. Dictated by: Mateus Cruz M.D. on 11/07/2022 at 10:31 Approved by: Mateus Cruz M.D. on 11/07/2022 at 10:42
== END ==
PROVIDERS: PCP Internal Medicine; Referring Provider Urology; Visit Provider Urology
DX: N28.89 Other specified disorders of kidney and ureter (principal); N13.30 Unspecified hydronephrosis; K76.0 Fatty (change of) liver, not elsewhere classified
CPT/HCPCS: 76770

== ENCOUNTER → 2023-04-25 07:51 | Outpatient (CLI) | payer OTHER, SELFPAY ==
--- NOTE | 2023-04-25 07:51 | DI.NM.S_ITS ---
PROCEDURE: [place] RENAL FUNCTION W LASIX RADIOPHARMACEUTICAL: 10.1 mCi Tc-99m MAG3 IV and 40 mg furosemide IV. INDICATIONS: Dilated renal pelvis question UPJ obstruction TECHNIQUE: The patient was hydrated orally before the examination was begun. After intravenous administration of Tc-99m MAG3, posterior abdominal radionuclide angiogram and sequential (1 minute each frame) renal images were obtained. A time-activity curve for each kidney was generated and analyzed. To evaluate for obstruction, the patient was given 40 mg furosemide via slow intravenous injection after the start of the examination. Sequential images were obtained for up to an additional 20 minutes. COMPARISON: [facility], CT, CT KIDNEY URETER BLADDER (KUB), 02/06/2022, 11:33. [place] RENAL FUNCTION W LASIX, 07/09/2022, 14:07. [place] RENAL FUNCTION W LASIX, 03/28/2022, 14:03. [place] RENAL FUNCTION W LASIX, 10/11/2022, 12:31. [facility], RENAL COMPLETE, 11/06/2022, 17:01. FINDINGS: Perfusion: There is normal vascular flow to both kidneys. Morphology: Both kidneys are normal in size and shape. The left renal collecting system is dilated. No dilated collecting system in right kidney. The right ureter and bladder fill with tracer, and appear normal. Left ureter is not well seen. Function: Both kidneys demonstrate normal cortical tracer uptake, with echj-id-nnam activity ranging from 3 to 5 minutes. The right kidney contributes 48% of total renal function. The left kidney contributes 52% of total renal function. Lasix stimulation: After diuretic administration, there is prompt clearance of tracer activity from the renal collecting systems in both kidneys. The half-time of emptying of tracer activity from the right pelvicaliceal system is 5.1 minutes. The half-time of emptying from the left pelvicaliceal system is 10 minutes. Normal emptying half-times are less than 10 minutes; borderline ranges are from 10 to 20 minutes. IMPRESSION: 1. Dilated left renal collecting system, but no significant left renal obstruction. 2. Stable split renal function. The right kidney contributes 48% of total renal function. The left kidney contributes 52% of total renal function. Dictated by: Carmelina Knox M.D. on 04/25/2023 at 10:11 Approved by: Carmelina Knox M.D. on 04/25/2023 at 14:18
== END ==
PROVIDERS: PCP Internal Medicine; Referring Provider Urology; Visit Provider Urology
DX: N28.89 Other specified disorders of kidney and ureter (principal)
CPT/HCPCS: 78708; A9562

== ENCOUNTER 2023-04-25 13:29 | Emergency (ER) | payer OTHER, SELFPAY ==
[2023-04-25 13:40] VITALS: BP 112/79; PULSE 109; RESP 14; TEMP 37.2; O2SAT 97; BMI 31.6
--- NOTE | 2023-04-25 13:54 | DI.CT.S_ITS ---
PROCEDURE: CT CERVICAL SPINE WO CON INDICATIONS: fall yesterday c7 tender TECHNIQUE: Noncontrast 3 mm thick sections acquired from the skull base to the T4 level. Sagittal and coronal reformats were then constructed. For radiation dose reduction, the following was used: automated exposure control, adjustment of mA and/or kV according to patient size. COMPARISON: None. FINDINGS: Image quality: Excellent. Bones: No fractures or dislocations. Visualized superior ribs are intact. Soft tissues: Prevertebral soft tissues are normal in thickness. No paravertebral hematomas. No apical pneumothoraces. IMPRESSION: No acute osseous abnormality. Dictated by: Camilo Duval M.D. on 04/25/2023 at 14:11 Approved by: Camilo Duval M.D. on 04/25/2023 at 14:14
--- NOTE | 2023-04-25 13:54 | DI.CT.S_ITS ---
PROCEDURE: CT HEAD/BRAIN WO CON INDICATIONS: headache, neck pain, fall yesterday TECHNIQUE: Noncontrast 4.5 mm thick angled axial sections acquired from the foramen magnum to the vertex, with coronal and sagittal reformats. For radiation dose reduction, the following was used: automated exposure control, adjustment of mA and/or kV according to patient size. COMPARISON: None. FINDINGS: Image quality: Excellent. CSF spaces: Basal cisterns are patent. No extra-axial fluid collections. Ventricles are normal in size and shape. Brain: No midline shift. No intracranial masses or hemorrhage. Pendleton-white matter interface is normal. Skull and face: Calvarium and visualized facial bones are intact, without suspicious lesions. Sinuses: Trace mucosal thickening in the left maxillary sinus. Paranasal sinuses are otherwise clear. Mastoids are clear. IMPRESSION: No acute intracranial abnormality. Dictated by: Camilo Duval M.D. on 04/25/2023 at 14:09 Approved by: Camilo Duval M.D. on 04/25/2023 at 14:11
--- NOTE | 2023-04-25 13:57 | PC.NURSE ---
C-collar applied in triage and pt put in a WC
--- NOTE | 2023-04-25 14:08 | ED.FALL ---
HPI - Fall <Ana Maria Sal PA-C - Last Filed: 04/25/23 18:48> General Chief Complaint: Fall Stated Complaint: Fell off deck, back/neck/shoulder/head pain Time Seen by Provider: 04/25/23 13:53 Source: patient Mode of arrival: Ambulatory History of Present Illness HPI Narrative: This is a 42-year-old woman who presents with concern for burning sensation in her low back after she had a fall yesterday and some neck pain as well. Patient also had headache. Patient states that she was on a deck and her bosses dog which is quite large jumped up on her and she lost her balance and went backwards landing 1st on her back and buttocks and then on her elbow and right shoulder as well as hitting her head and neck. She states that the deck is about 1 ft off the ground and she landed on grass but the ground was extremely hard. Since that time she is had a headache and some neck pain in her low mid neck she is also had a burning sensation in her low back on both sides of her lumbar region. She had a pretty intense headache last night and this morning but states that this has improved. She is not noticed any weakness has been moving her legs and arms normally she also denies numbness or tingling, vision change, loss of consciousness or any other symptoms. Related Data Home Medications Medication Instructions Recorded Confirmed glyburide 2.5 mg tablet 5 mg PO HS 03/19/22 11/12/22 metformin 850 mg tablet 500 mg PO QDAY 03/19/22 11/12/22 Previous Rx's Medication Instructions Recorded Verio Test Strips 1 unit topical 5XD Diabetes ##150 04/02/18 fluticasone propionate 50 2 spray intranasal DAILY #9.9 grams 10/07/18 mcg/actuation nasal spray,suspension levothyroxine 75 mcg tablet 75 mcg PO QAM #90 tabs 10/07/18 (Synthroid) baclofen 10 mg tablet 10 mg PO TID PRN muscle spasm 5 04/25/23 days #15 tabs lidocaine 5 % topical patch 1 patch topical DAILY 15 days #15 04/25/23 ea Allergies Allergy/AdvReac Type Severity Reaction Status Date / Time bupropion [BUPROPION] Allergy Mild HIVES Verified 04/25/23 13:44 miconazole [MICONAZOLE] Allergy Mild swelling Verified 04/25/23 13:44 and itching Review of Systems <Ana Maria Sal PA-C - Last Filed: 04/25/23 18:48> Review of Systems Narrative: See HPI Patient History <Ana Maria Sal PA-C - Last Filed: 04/25/23 18:48> Medical History Abnormal Pap smear of cervix (~1996) Ankle pain (~2014) Depression (~1997) Dilated renal pelvis Dysfunctional uterine bleeding (~2000) Heavy menstrual period (~1990) Hemorrhoid (~1997) History of flank pain History of renal calculi Irregular menstrual cycle (~2000) Obstructive sleep apnea of adult (~01/2019) Painful menstrual periods (~1992) Plantar warts (~2007) Seasonal allergies (~1987) Snoring (~11/2016) Vision disorder Surgical History Anesthesia Status post tubal ligation (09/14/04) Family History Father Age: 72 Colon cancer Type 2 diabetes mellitus Grandmother Breast CA Mother Age: 67 Hypertension Stroke Grandfather Age: 79 Mesothelioma Cancer Grandmother Age: 96 Diabetes mellitus Sister Age: 48 Mental health problem Sister Age: 41 Cervical cancer Social History marital status: number of children: 3 Smoking Status: Never smoker Smoking Status: Never smoker alcohol intake frequency: a few times a month Substance Use Type: does not use Exam <Ana Maria Sal PA-C - Last Filed: 04/25/23 18:48> Narrative Exam Narrative: GENERAL: 42 year old patient appears stated age. Well-developed patient, in mild distress. HEAD: Atraumatic. Normocephalic. EYES: Pupils equal round and reactive. Extraocular motions intact. No scleral icterus. No injection or drainage. ENT: Nose without bleeding, purulent drainage. Airway patent. NECK: There is mild midline tenderness C5 through 7. Mild paraspinal muscle tenderness of the C-spine. Trachea midline. Non tender CARDIOVASCULAR: Regular rate and rhythm without murmurs, gallops, or rubs. RESPIRATORY: Clear to auscultation. Breath sounds equal bilaterally. No wheezes, rales, or rhonchi. GASTROINTESTINAL: Abdomen soft, non-tender, nondistended. EXTREMITIES: Also see back. Normal active range of motion of arms and shoulders with normal strength. No edema or joint tenderness. BACK: There is tenderness in the mid lumbar region L4-L5, there is paraspinal muscle tenderness and tightness, in the lumbar region, there is also tenderness over the SI joints. Strength is intact 5/5 lower extremities with flexion and extension at the hip and knee and with plantar flexion and dorsiflexion.. Otherwise Nontender without deformity or crepitance. No flank tenderness. NEURO: AOx3. SKIN: No rash or erythema of visible areas Initial Vital Signs Initial Vital Signs: Vital Signs Temperature 98.9 F 04/25/23 13:40 Pulse Rate 109 H 04/25/23 13:40 Respiratory Rate 14 04/25/23 13:40 Blood Pressure 112/79 04/25/23 13:40 Pulse Oximetry 97 04/25/23 13:40 Oxygen Delivery Method Room Air 04/25/23 13:40 <DO Alfred Schwartz Last Filed: 04/26/23 18:15> Initial Vital Signs Initial Vital Signs: Vital Signs Temperature 98.9 F 04/25/23 13:40 Pulse Rate 109 H 04/25/23 13:40 Respiratory Rate 14 04/25/23 13:40 Blood Pressure 112/79 04/25/23 13:40 Pulse Oximetry 97 04/25/23 13:40 Oxygen Delivery Method Room Air 04/25/23 13:40 Course <Ana Maria Sal PA-C - Last Filed: 04/25/23 18:48> Orders Ordered: ED Orders 04/25/23 13:54 CT cervical spine wo con Stat CT head/brain wo con Stat 04/25/23 15:09 XR lumbar spine 2-3V Stat Vital Signs Vital signs: Vital Signs - 8 hr 04/25/23 13:40 04/25/23 16:01 Temperature 98.9 F Pulse Rate 109 H 98 H Respiratory Rate 14 19 Blood Pressure 112/79 118/78 Pulse Oximetry 97 98 Oxygen Delivery Method Room Air Room Air <DO Alfred Schwartz Last Filed: 04/26/23 18:15> Orders Ordered: ED Orders 04/25/23 13:54 CT cervical spine wo con Stat CT head/brain wo con Stat 04/25/23 15:09 XR lumbar spine 2-3V Stat Vital Signs Vital signs: Vital Signs - 8 hr 04/25/23 13:40 04/25/23 16:01 Temperature 98.9 F Pulse Rate 109 H 98 H Respiratory Rate 14 19 Blood Pressure 112/79 118/78 Pulse Oximetry 97 98 Oxygen Delivery Method Room Air Room Air MDM - Fall <Ana Maria Sal PA-C - Last Filed: 04/25/23 18:48> Differential Diagnosis Differential diagnosis: Likely concussion without loss of consciousness and other (Post head injury, neck injury, lumbar injury, muscle spasm) Medical Records Attestation: I reviewed the patient's medical records. Imaging Data CT scan - head: My Impression: Agree with Radiology interpretation Radiologist's Impression: [address] [address] [address] Scan Report Signed Patient: Zarina Padilla MR#: [id number] : 1980 Acct:[id number] Age/Sex: 42 / F Date of Service: 04/25/23 Loc: ED Accession Number: [id number] ?? Procedure: CT head/brain wo con Ordering Provider: Ana Maria Sal P.A-C PROCEDURE:? CT HEAD/BRAIN WO CON ? INDICATIONS:? headache, neck pain, fall yesterday ? TECHNIQUE:? Noncontrast 4.5 mm thick angled axial sections acquired from the foramen magnum to the vertex, with coronal and sagittal reformats.? For radiation dose reduction, the following was used:? automated exposure control, adjustment of mA and/or kV according to patient size.? ? COMPARISON:? None. ? FINDINGS:? Image quality:? Excellent.? ? CSF spaces:? Basal cisterns are patent.? No extra-axial fluid collections.? Ventricles are normal in size and shape.? ? Brain:? No midline shift.? No intracranial masses or hemorrhage.? Pendleton-white matter interface is normal.? ? Skull and face:? Calvarium and visualized facial bones are intact, without suspicious lesions.? ? Sinuses:? Trace mucosal thickening in the left maxillary sinus.? Paranasal sinuses are otherwise clear.? Mastoids are clear.? ? IMPRESSION:? No acute intracranial abnormality. ? ? Dictated by: Camilo Duval M.D. on 04/25/2023 at 14:09 ? ? Approved by: Camilo Duval M.D. on 04/25/2023 at 14:11?? CT - cervical spine: My Impression: Agree with Radiology interpretation Radiologist's Impression: [address] [address] [address] Scan Report Signed Patient: Zarina Padilla MR#: [id number] : 1980 Acct:[id number] Age/Sex: 42 / F Date of Service: 04/25/23 Loc: ED Accession Number: [id number] ?? Procedure: CT cervical spine wo con Ordering Provider: Ana Maria Sal P.A-C PROCEDURE:? CT CERVICAL SPINE WO CON ? INDICATIONS:? fall yesterday c7 tender ? TECHNIQUE:? Noncontrast 3 mm thick sections acquired from the skull base to the T4 level.? Sagittal and coronal reformats were then constructed.? For radiation dose reduction, the following was used:? automated exposure control, adjustment of mA and/or kV according to patient size.? ? COMPARISON:? None. ? FINDINGS:? Image quality:? Excellent.? ? Bones:? No fractures or dislocations.? Visualized superior ribs are intact.? ? Soft tissues:? Prevertebral soft tissues are normal in thickness.? No paravertebral hematomas.? No apical pneumothoraces.? ? ? IMPRESSION:? No acute osseous abnormality. ? ? ? Dictated by: Camilo Duval M.D. on 04/25/2023 at 14:11 ? ? Approved by: Camilo Duval M.D. on 04/25/2023 at 14:14?? XR L spine: My Impression: Agree with Radiology interpretation Radiologist's Impression: [address] [address] XRay Report Signed Patient: aZrina Padilla MR#: [id number] : 1980 Acct:[id number] Age/Sex: 42 / F Date of Service: 04/25/23 Loc: ED Accession Number: [id number] ?? Procedure: XR lumbar spine 2-3V Ordering Provider: Ana Maria Sal P.A-C PROCEDURE:? XR LUMBAR SPINE 2-3V ? INDICATIONS:? fall yesterday, LBP ? TECHNIQUE:? 3 views of the lumbar spine were acquired.? ? COMPARISON:? None. ? FINDINGS:? ? Bones:? 5 [id number] vertebrae are present.? There is normal bony alignment.? No vertebral body compression fractures.? No suspicious bony lesions.? ? Soft tissues:? Overlying bowel gas pattern is normal.? No suspicious soft tissue calcifications.? ? ? IMPRESSION:? No acute compression fracture or spondylolisthesis in lumbar spine. ? ? Dictated by: Ilya Hussein M.D. on 04/25/2023 at 15:22 ? ? Approved by: Ilya Hussein M.D. on 04/25/2023 at 15:23?? Treatment and disposition Shared decision making:: Shared decision-making was used in determining the patient's plan of care plan for outpatient follow-up. MDM Narrative Medical decision making narrative: This is a generally well-appearing 42-year-old woman who presents with concern for low back discomfort bilaterally as well as neck pain and headache after falling yesterday off of a deck about 1 ft high and landing on her back and head. No loss of consciousness. Given patient's midline neck pain and headache CT head and neck noncontrast are obtained and are unremarkable. Patient has no other concerning symptoms for concussion, L-spine x-ray is also obtained given her bilateral low back discomfort. This is also unremarkable. Patient is prescribed baclofen to be used as needed advised heat, ice alternating, lidocaine is also prescribed, she is advised to follow up closely with her primary care provider return precautions provided, follow-up plan discussed, all questions answered. Discharge Plan Departure Patient Disposition: Home Clinical Impression: Fall, Acute neck pain, Low back pain Activity Restrictions/Additional Instructions: *You have been diagnosed with [fall, pain] *What to do: *Please continue to take your regular medications as directed. [2 ] New medication prescriptions sent to your pharmacy: [Lidocaine topical and muscle relaxer baclofen] [ ] New medication written as a paper prescription [ ] No new medications given *Please follow up with your primary care provider in 2-3 days, call for an appointment. Let them know you were seen in the Emergency Department and that we ask that you be seen in follow up. We will electronically transmit a record of today's note if your PCP is in our system. Imaging performed today in the emergency department of your neck and head did not show any concerning findings. I suspect that you have some soft tissue injury/muscle muscle strain secondary or fall. X-rays of your lumbar spine did not show any acute concerning findings, we also did CT scan of your head and neck which also looked okay. I suspect that your injuries are certainly due to her fall but there is nothing concerning on imaging today, I encourage you to use heat, alternating with ice or heat or ice depending on what feels better, you can try the lidocaine patches as well for pain/discomfort and I have also prescribed muscle relaxers which you can try to see if this is helpful as well. You can also take Tylenol for pain. I strongly encourage you to follow-up closely with your primary care provider. *If you do not have a primary care provider please contact the [facility] Resource line at [phone]. They will ask some questions about your medical history and help get you set up with a doctor in the community. *Return to Emergency Department if you should have any new, worsening or concerning symptoms, such as [fever greater than 101 F, shaking chills, worsening pain, persistent vomiting or other bothersome symptoms] Prescriptions: New baclofen 10 mg tablet 10 mg PO TID PRN (Reason: muscle spasm) 5 Days Qty: 15 0RF lidocaine 5 % adhesive patch,medicated 1 patch topical DAILY 15 Days Qty: 15 0RF Rx Instructions: leave on most painful area for up to 12 hrs No Action Verio Test Strips 1 unit TOP 5XD Qty: 150 3RF levothyroxine [Synthroid] 75 mcg tablet 75 mcg PO QAM Qty: 90 3RF fluticasone propionate 50 mcg/actuation spray,suspension 2 spray NASAL DAILY Qty: 9.9 3RF Rx Instructions: administer into each nostril glyburide 2.5 mg tablet 5 mg PO HS metformin 850 mg tablet 500 mg PO QDAY Referrals: Ariana Oliva ARNP [Primary Care Provider] - Stand Alone Forms: Patient Portal/API <Barbara Coulter DO - Last Filed: 04/26/23 18:15> Cosign ED Attending Jocelinature Attestation: I was immediately available in the department for consultation. Documentation has been reviewed.
--- NOTE | 2023-04-25 15:09 | DI.RAD.S_ITS ---
PROCEDURE: XR LUMBAR SPINE 2-3V INDICATIONS: fall yesterday, LBP TECHNIQUE: 3 views of the lumbar spine were acquired. COMPARISON: None. FINDINGS: Bones: 5 [id number] vertebrae are present. There is normal bony alignment. No vertebral body compression fractures. No suspicious bony lesions. Soft tissues: Overlying bowel gas pattern is normal. No suspicious soft tissue calcifications. IMPRESSION: No acute compression fracture or spondylolisthesis in lumbar spine. Dictated by: Ilya Hussein M.D. on 04/25/2023 at 15:22 Approved by: Ilya Hussein M.D. on 04/25/2023 at 15:23
--- NOTE | 2023-04-25 15:10 | PC.NURSE ---
C-spine cleared by REYNALDO Sal. C-collar removed
[2023-04-25 16:01] VITALS: BP 118/78; PULSE 98; RESP 19; O2SAT 98
== END 2023-04-25 16:02 | disposition home or self-care (01) ==
PROVIDERS: Emergency Provider Student in an Organized Health Care Education/Training Program; PCP Internal Medicine
DX: M54.2 Cervicalgia (principal); M54.50 Low back pain, unspecified; N28.89 Other specified disorders of kidney and ureter; W17.89XA Other fall from one level to another, initial encounter
CPT/HCPCS: 70450; 72100; 72125; 78708; 99281; 99283; A9562

== ENCOUNTER → 2023-05-06 14:26 | Outpatient (CLI) | payer OTHER, SELFPAY ==
[2023-05-06 15:27] LABS: BUN Creatinine Ratio 16.9 (6-22); Blood Urea Nitrogen 11 mg/dL (7-17); Calcium 8.9 mg/dL (8.4-10.2); Carbon Dioxide 26 mmol/L (22-32); Chloride 104 mmol/L (98-107); Estimated Glomerular Filt Rate > 60 mL/min (>60); Glucose 144 mg/dL (70-100); HEMOLYSIS < 15 (0-50); Sodium 139 mmol/L (137-145)
== END ==
PROVIDERS: PCP Internal Medicine; Referring Provider Urology; Visit Provider Urology
DX: N28.89 Other specified disorders of kidney and ureter (principal)
CPT/HCPCS: 36415; 80048

== ENCOUNTER → 2023-08-26 12:33 | Outpatient (CLI) | payer OTHER, SELFPAY ==
--- NOTE | 2023-08-26 | DI.US.S_ITS ---
PROCEDURE: US PELVIC COMPLETE INDICATIONS: LEFT PELVIC PAIN TECHNIQUE: Real-time scanning was performed of the pelvic organs, with image documentation. Additional endovaginal scanning was necessary due to incomplete visualization of the adnexal and endometrial structures by transabdominal scanning. Color and spectral Doppler of the ovaries was performed. COMPARISON: [facility], US, PELVIC COMPLETE, 06/14/2015, 17:11. FINDINGS: Uterus: Uterus is anteverted and normal in size at 9.0 x 5.0 x 5.7 cm. The myometrium is homogeneous. The endometrium measures 3 mm combined thickness. IUD within the central endometrium. A couple of intramural fibroids within the mid to upper uterine segment measuring 2.1 x 1.8 x 1.7 cm and 1.1 x 1.1 x 1.2 cm. Ovaries: The right ovary measures 2.8 x 2.0 x 1.3 cm, with a calculated ovarian volume of 4 cc. The left ovary measures 2.6 x 3.3 x 2.2 cm, with a calculated ovarian volume of 10 cc. The ovaries have a normal sonographic appearance. Less than 12 follicles can be seen in each ovary. No adnexal masses are seen. Patent arterial waveforms. Other: No pathologic free abdominal or pelvic fluid. IMPRESSION: IUD within the central uterus. A couple of small intramural fibroids, largest measuring 2.1 cm. We strive to produce accurate, complete, and clear reports of imaging services. To assist us in improving patient care, this report was composed using standard report templates and voice recognition software. Therefore, it may contain abnormal punctuation, insertions and/or omissions. Occasional wrong-word or sound-alike substitutions may occur. Though we review the report and make efforts to correct it, we do recommend that the report be read carefully in proper context to recognize any text inaccuracies. Dictated by: Shiraz Galvan M.D. on 08/26/2023 at 14:17 Approved by: Shiraz Galvan M.D. on 08/26/2023 at 14:18
== END ==
PROVIDERS: PCP Internal Medicine; Referring Provider Registered Nurse; Visit Provider Registered Nurse
DX: R10.32 Left lower quadrant pain (principal)
CPT/HCPCS: 76830; 76856; 93975

== ENCOUNTER → 2023-08-27 08:32 | Outpatient (CLI) | payer OTHER, SELFPAY ==
--- NOTE | 2023-08-27 | DI.MG.S_ITS ---
BILATERAL DIGITAL SCREENING MAMMOGRAM 3D/2D WITH CAD: 08/27/2023 CLINICAL: Routine screening. Family history of breast cancer. Comparison is made to exams dated: 08/26/2022 mammogram, 08/24/2021 mammogram, 08/22/2020 mammogram, and 08/22/2020 [facility]. There are scattered areas of fibroglandular density in both breasts (category b / 25%-50% glandular tissue). Current study was also evaluated with a Computer Aided Detection (CAD) system. There is possible developing architectural distortion in the left breast posterior depth lateral region seen on the craniocaudal view only. Right breast biopsy clip. No other significant masses, calcifications, or other findings are seen in either breast. IMPRESSION: INCOMPLETE: NEEDS ADDITIONAL IMAGING EVALUATION The possible developing architectural distortion in the left breast is indeterminate. Additional views with possible ultrasound are recommended. Based on the Tyrer Cuzick model (a risk assessment model) the patient's lifetime risk is 9.6% and her 10 year risk is 1.5%. According to the ACR, ACS, and NCCN guidelines, an annual breast MRI exam along with mammogram is recommended if the patient's lifetime risk is 20% or greater. This exam was interpreted at Station ID: [id number]. NOTE: For mammograms, a report in lay terms will be sent to the patient. Approximately 15% of breast malignancies will not be visualized mammographically. In the management of a palpable breast mass, a negative mammogram must not discourage biopsy of a clinically suspicious lesion. Electronically Signed By: Camilo Duval M.D. [facility] [place]/:08/27/2023 11:12:23 letter sent: Additional Imaging Needed ACR BI-RADS Category 0: Incomplete 3340F
== END ==
PROVIDERS: PCP Internal Medicine; Referring Provider Internal Medicine; Visit Provider Internal Medicine
DX: Z12.31 Encounter for screening mammogram for malignant neoplasm of breast (principal); Z80.3 Family history of malignant neoplasm of breast; R92.8 Other abnormal and inconclusive findings on diagnostic imaging of breast
CPT/HCPCS: 77063; 77067

== ENCOUNTER → 2023-09-12 08:50 | Outpatient (CLI) | payer OTHER, SELFPAY ==
--- NOTE | 2023-09-12 | DI.MG.S_ITS ---
UNILATERAL LEFT DIGITAL DIAGNOSTIC MAMMOGRAM 3D/2D WITH ADDITIONAL VIEWS: 09/12/2023 CLINICAL: Additional evaluation requested from prior study. Comparison is made to exams dated: 08/27/2023 mammogram, 08/26/2022 mammogram, and 08/24/2021 mammogram - [facility]. There are scattered areas of fibroglandular density in the left breast (category b / 25%-50% glandular tissue). There is architectural distortion in the left breast posterior depth lateral region seen on the craniocaudal view only. No other significant masses or calcifications are seen in the breast. IMPRESSION: INCOMPLETE: NEEDS ADDITIONAL IMAGING EVALUATION The architectural distortion in the left breast is indeterminate. Review of more remote images demonstrates a similar area of architectural distortion in 2020 and 2019. An ultrasound is recommended to further evaluate for any ultrasound finding and will be performed today and dictated separately. Based on the Tyrer Cuzick model (a risk assessment model) the patient's lifetime risk is 9.6% and her 10 year risk is 1.5%. According to the ACR, ACS, and NCCN guidelines, an annual breast MRI exam along with mammogram is recommended if the patient's lifetime risk is 20% or greater. This exam was interpreted at Station ID: [id number]. NOTE: For mammograms, a report in lay terms will be sent to the patient. Approximately 15% of breast malignancies will not be visualized mammographically. In the management of a palpable breast mass, a negative mammogram must not discourage biopsy of a clinically suspicious lesion. Electronically Signed By: Ahmet Anguiano M.D. acr/:09/12/2023 09:32:12 ACR BI-RADS Category 0: Incomplete 3340F
--- NOTE | 2023-09-12 | DI.US.S_ITS ---
LIMITED ULTRASOUND OF LEFT BREAST: 09/12/2023 CLINICAL: Patient returns today to evaluate a focal asymmetry in the left breast. Comparison is made to exams dated: 09/12/2023 mammogram, 08/27/2023 mammogram, and 08/26/2022 mammogram - [facility]. Color flow and real-time ultrasound of the left breast were performed. No abnormality is seen in the left breast posterior depth 4:00 position. Review of prior mammograms demonstrates similar finding on prior mammograms in this finding is stable and therefore benign. IMPRESSION: NEGATIVE There is no sonographic evidence of malignancy. There is no abnormality seen in the left breast to correspond with the mammography finding at 4 o'clock. A 1 year screening mammogram is recommended. This exam was interpreted at Station ID: [id number]. Electronically Signed By: Ahmet Anguiano M.D. acr/:09/12/2023 12:20:21 letter sent: Normal Exam Ultrasound BI-RADS: 1 Negative
== END ==
LOC: MAMMO 08:50
PROVIDERS: PCP Internal Medicine; Referring Provider Registered Nurse; Visit Provider Registered Nurse
DX: R92.8 Other abnormal and inconclusive findings on diagnostic imaging of breast (principal)
CPT/HCPCS: 76642; 77065; G0279

== ENCOUNTER 2024-07-01 14:47 | Emergency (ER) | payer OTHER, SELFPAY ==
[2024-07-01 14:51] VITALS: BP 133/82; PULSE 90; RESP 18; TEMP 36.6; O2SAT 99; BMI 29.1
--- NOTE | 2024-07-01 14:54 | DI.RAD.S_ITS ---
PROCEDURE: XR FOOT LT MIN 3V INDICATIONS: can fell on foot/pain/swelling TECHNIQUE: 3 views of the foot were acquired. COMPARISON: None. FINDINGS: Bones: No fractures or dislocations. No suspicious bony lesions. Soft tissues: No tibiotalar joint effusion. Achilles tendon appears normal. IMPRESSION: No acute bony abnormality. If clinical symptoms persist, consider repeat radiograph in 10-14 days versus cross-sectional imaging. Dictated by: oDnato Lambert M.D. on 07/01/2024 at 16:24 Approved by: Donato Lambert M.D. on 07/01/2024 at 16:35
--- NOTE | 2024-07-01 14:58 | ED_ITS ---
HPI - Extremity Injury (Lower) <Chad Dominique PA-C - Last Filed: 07/01/24 16:45> General Chief Complaint: Extremity Injury, Lower Stated Complaint: dropped can on foot, swelling Time Seen by Provider: 07/01/24 14:58 Source: patient Mode of arrival: Ambulatory History of Present Illness HPI Narrative: This is a 43-year-old female presents emergency department due to Left foot pain after dropping a 1 lb can onto its top of her left foot. She denies any numbness or inability to move her ankle or toes. She was reporting pain of the 1st mid tarsal. No breaks in the skin. At the 1st metatarsal. No breaks in th e skin. Me Related Data Home Medications Medication Instructions Recorded Confirmed blood-glucose sensor (FreeStyle #1 ea 06/04/24 06/25/24 Mckenzie 3 Sensor device) semaglutide 14 mg tablet (Rybelsus) 14 mg PO QAM 06/04/24 06/25/24 Previous Rx's Medication Instructions Recorded Verio Test Strips 1 unit topical 5XD Diabetes ##150 04/02/18 benzonatate 200 mg capsule 200 mg PO BID PRN cough #28 caps 06/25/24 Allergies Allergy/AdvReac Type Severity Reaction Status Date / Time bupropion [BUPROPION] Allergy Mild HIVES Verified 06/25/24 16:39 miconazole [MICONAZOLE] Allergy Mild swelling Verified 06/25/24 16:39 and itching Review of Systems <Chad Dominique PA-C - Last Filed: 07/01/24 16:45> Review of Systems Narrative: 12 point review of systems is negative except for those stated above GENERAL: Denies chills, fatigue, malaise, fever, sweats. HEENT: Denies sinus pain, ear pain, sore throat, difficulty swallowing, di zziness. RESPIRATORY: Denies dyspnea, cough, wheezing, hemoptysis, sputum. CARDIOVASCULAR: Denies chest pain, palpitations, orthopnea, edema, GASTROINTESTINAL: Denies nausea, vomiting, abdominal pain, diarrhea, constipation, melena. : Denies dysuria, frequency, incontinence, hematuria, urinary retention. MUSCULOSKELETAL: reports left foot pain denies weakness, joint pain, or bony pain SKIN: Denies rash, skin lesions, or other NEUROLOGIC: Denies weakness, headache, numbness, change in speech, confusion, seizures, incoordination. PSYCHIATRIC: No concerning psychosocial issues. 12 point review of systems is negative except for those stated above Patient History <Chad Dominique PA-C - Last Filed: 07/01/24 16:45> Medical History (Updated 07/01/24 @ 16:45 by Chad Dominique PA-C) Hydronephrosis, left History of renal calculi History of flank pain Dilated renal pelvis Obstructive sleep apnea of adult (~01/2019) Snoring (~11/2016) Vision disorder Seasonal allergies (~1987) Depression (~1997) Ankle pain (~2014) Plantar warts (~2007) Dysfunctional uterine bleeding (~2000) Painful menstrual periods (~1992) Irregular menstrual cycle (~2000) Heavy menstrual period (~1990) Abnormal Pap smear of cervix (~1996) Hemorrhoid (~1997) Surgical History Anesthesia Status post tubal ligation (09/14/04) Family History Father Age: 74 Colon cancer Type 2 diabetes mellitus Grandmother Breast CA Mother Age: 69 Hypertension Stroke Grandfather Age: 81 Mesothelioma Cancer Grandmother Age: 98 Diabetes mellitus Sister Age: 50 Mental health problem Sister Age: 43 Cervical cancer Social History marital status: number of children: 3 Smoking Status: Never smoker Smoking Status: Never smoker alcohol intake frequency: a few times a month Substance Use Type: does not use Exam <Chad Dominique PA-C - Last Filed: 07/01/24 16:45> Narrative Exam Narrative: GENERAL: Well-developed patient, in mild distress. HEAD: Atraumatic. Normocephalic. EYES: Pupils equal round and reactive. Extraocular motions intact. No scleral icterus. No injection or drainage. ENT: Nose without bleeding, purulent drainage. Throat without erythema, tonsillar hypertrophy or exudate. Airway patent. NECK: Trachea midline. Non tender EXTREMITIES: tenderness to palpation of the 1st metatarsal of the left foot. No breaks in the skin. Full range of motionOf the ankle and toes. Neurovascularly intact throughout. NEURO: AOx3. SKIN: No rash or erythema of visible areas Initial Vital Signs Initial Vital Signs: Vital Signs Temperature 98 F 07/01/24 14:51 Pulse Rate 90 07/01/24 14:51 Respiratory Rate 18 07/01/24 14:51 Blood Pressure 133/82 07/01/24 14:51 Pulse Oximetry 99 07/01/24 14:51 Oxygen Delivery Method Room Air 07/01/24 14:51 <Jarrett Poe MD - Last Filed: 07/09/24 07:57> Initial Vital Signs Initial Vital Signs: Vital Signs Temperature 98 F 07/01/24 14:51 Pulse Rate 90 07/01/24 14:51 Respiratory Rate 18 07/01/24 14:51 Blood Pressure 133/82 07/01/24 14:51 Pulse Oximetry 99 07/01/24 14:51 Oxygen Delivery Method Room Air 07/01/24 14:51 Course <Chad Dominique PA-C - Last Filed: 07/01/24 16:45> Orders Ordered: ED Orders 07/01/24 14:54 XR foot LT min 3V Stat Vital Signs Vital signs: Vital Signs - 8 hr 07/01/24 14:51 Temperature 98 F Pulse Rate 90 Respiratory Rate 18 Blood Pressure 133/82 Pulse Oximetry 99 Oxygen Delivery Method Room Air <Jarrett Poe MD - Last Filed: 07/09/24 07:57> Orders Ordered: ED Orders 07/01/24 14:54 XR foot LT min 3V Stat Vital Signs Vital signs: Vital Signs - 8 hr 07/01/24 14:51 Temperature 98 F Pulse Rate 90 Respiratory Rate 18 Blood Pressure 133/82 Pulse Oximetry 99 Oxygen Delivery Method Room Air MDM - Extremity Injury (Lower) <Chad Dominique PA-C - Last Filed: 07/01/24 16:45> Imaging Data Extremity x-ray #1: Radiologist's Impression: [address] [address] XRay Report Signed Patient: Zarina Padilla MR#: [id number] : 1980 Acct:[id number] Age/Sex: 43 / F Date of Service: 07/01/24 Loc: ED Accession Number: [id number] Procedure: XR foot LT min 3V Ordering Provider: Jarrett Poe MD PROCEDURE: XR FOOT LT MIN 3V INDICATIONS: can fell on foot/pain/swelling TECHNIQUE: 3 views of the foot were acquired. COMPARISON: None. FINDINGS: Bones: No fractures or dislocations. No suspicious bony lesions. Soft tissues: No tibiotalar joint effusion. Achilles tendon appears normal. IMPRESSION: No acute bony abnormality. If clinical symptoms persist, consider repeat radiograph in 10-14 days versus cross-sectional imaging. Dictated by: Donato Lambert M.D. on 07/01/2024 at 16:24 Approved by: Donato Lambert M.D. on 07/01/2024 at 16:35 [facility] Narrative Medical decision making narrative: ED course: this is a 43-year-old female presents to the emergency department due to left foot pain after dropping a can on it. X-ray unremarkable. Recommended rest, ice, elevation as well as ibuprofen for pain control. Neurovascularly intact throughout. CC: Left foot pain Complicating co-morbidities: none Data collected from: Previous notes Medical records reviewed: Patient was last seen in this emergency department about a year ago due to falling off a deck. History of diabetes, plantar warts. Differential considered, but not limited to: fracture, soft tissue injury, neurovascular injury Exam documented above, pertinent findings include: some tenderness to palpation to the 1st metatarsal, otherwise unremarkable Lab Test results independently reviewed as above. Pertinent findings: none obtained Imaging studies independently reviewed: x-ray negative for fracture Scores Used: None MIPS Elements: None Consultations: None Treatments: none Re-evaluations: none Discussion: Discussed plan with the patient was comfortable with the plan Diagnosis: left foot contusion Disposition: see below, along with detailed discharge instructions that have been reviewed with patient as well as indications for ED re-evaluation and additional outpatient follow up Discharge Plan Departure Patient Disposition: Home Clinical Impression: Contusion of foot, left Activity Restrictions/Additional Instructions: Thank you for coming to the [facility] Emergency Department today. As we discussed your foot x-ray was negative for any fractures or dislocations or other bony abnormalities. Please treat this as you would a sprain with ibuprofen, elevation, ice, and rest. Please return to the emergency department if you develop any Severe uncontrollable pain, numbness,or any other concerning signs or symptoms. I hope you feel better soon. Please follow up with your primary care provider within a week if your symptoms continue. If you do not have a primary care provider please contact the [facility] Resource line at [phone]. They will ask some questions about your medical history and help you get set up with a provider in the community. Prescriptions: No Action benzonatate 200 mg capsule 200 mg PO BID PRN (Reason: cough) Qty: 28 0RF Rybelsus 14 mg tablet 14 mg PO QAM (DME) [employer] Mckenzie 3 Sensor Device See Rx Instructions .ROUTE .MEDSUPPLY Qty: 1 Patient Comments: [NO ORIGINAL SIG] Rx Instructions: As directed Verio Test Strips 1 unit TOP 5XD Qty: 150 3RF Referrals: Ariana Oliva ARNP [Primary Care Provider] - Stand Alone Forms: Patient Portal/API ED Sign-out <Jarrett Poe MD - Last Filed: 07/09/24 07:57> [facility]: I was immediately available in the department for consultation. ?This documentation has been reviewed and I agree with assessment and plan. Supervised by Jarrett Poe MD
[2024-07-01 16:56] VITALS: BP 117/71; PULSE 83; RESP 16; TEMP 36.4; O2SAT 99
== END 2024-07-01 16:57 | disposition home or self-care (01) ==
PROVIDERS: Emergency Provider Physician Assistant Medical; PCP Internal Medicine
DX: S90.32XA Contusion of left foot, initial encounter (principal); W22.8XXA Striking against or struck by other objects, initial encounter
CPT/HCPCS: 73630; 99281; 99283

== ENCOUNTER → 2024-08-28 08:54 | Outpatient (CLI) | payer OTHER, SELFPAY ==
--- NOTE | 2024-08-28 | DI.MG.S_ITS ---
BILATERAL DIGITAL SCREENING MAMMOGRAM 3D/2D WITH CAD: 08/28/2024 CLINICAL: Routine screening. Family history of breast cancer. Comparison is made to exams dated: 08/27/2023 mammogram, 08/26/2022 mammogram, 08/24/2021 mammogram, 09/12/2023 mammogram, 08/22/2020 mammogram, and 09/25/2019 mammogram - [facility]. There are scattered areas of fibroglandular density (category b / 25%-50% glandular tissue). Current study was also evaluated with a Computer Aided Detection (CAD) system. No significant masses, calcifications, or other findings are seen in either breast. There has been no significant interval change. IMPRESSION: NEGATIVE There is no mammographic evidence of malignancy. A 1 year screening mammogram is recommended. Based on the Tyrer Cuzick model (a risk assessment model) the patient's lifetime risk is 9.5% and her 10 year risk is 1.6%. According to the ACR, ACS, and NCCN guidelines, an annual breast MRI exam along with mammogram is recommended if the patient's lifetime risk is 20% or greater. This exam was interpreted at Station ID: [id number]. NOTE: For mammograms, a report in lay terms will be sent to the patient. Approximately 15% of breast malignancies will not be visualized mammographically. In the management of a palpable breast mass, a negative mammogram must not discourage biopsy of a clinically suspicious lesion. Electronically Signed By: Lise Demarco M.D., Ph.D. balbina/joy:09/01/2024 01:25:03 letter sent: Normal Exam ACR BI-RADS Category 1: Negative
== END ==
PROVIDERS: PCP Internal Medicine; Referring Provider Internal Medicine; Visit Provider Internal Medicine
DX: Z12.31 Encounter for screening mammogram for malignant neoplasm of breast (principal); Z80.3 Family history of malignant neoplasm of breast
CPT/HCPCS: 77063; 77067

== ENCOUNTER 2024-12-07 07:00 | Day surgery (SDC) | payer OTHER, SELFPAY ==
[2024-12-07 07:32] VITALS: BP 104/77; PULSE 105; RESP 12; TEMP 36.5; O2SAT 98
[2024-12-07] MEDS: SODIUM CHLORIDE 0.9% 1,000 ML 84 ML IV (07:43)
--- NOTE | 2024-12-07 10:22 | PM.OP.COLON ---
Operative Date/Time/Diagnoses Date of procedure: 12/07/24 Time of procedure: 10:22 Procedure & Clinicians Surgeon: Pantera Feliz Procedure Notes Procedure in detail: OPERATIVE / PROCEDURE NOTE Zarina Padilla, 1980, 44,Female,CSN: [id number] PREOPERATIVE DIAGNOSIS: Positive FH of stage IV colon cancer in her dad when he was 67 yo. POSTOPERATIVE DIAGNOSIS: Same + Per the colonoscopy to the cecum: COMPLETELY NORMAL COLON. PROCEDURE DONE: Colonoscopy to the cecum. ANESTHESIA: MAC per Anesthesia. COMPLICATIONS: None. SPECIMENS: None. ESTIMATED BLOOD LOSS: NONE. CONDITION: Stable to the PACU. OPERATIVE DESCRIPTION: After proper informed consent was signed by the patient knowing all the risks, benefits, and potential complications and possible alternatives of the procedure, the patient was appropriately identified. Zarina Padilla underwent a bowel prep that was very efficient yesterday, and the colon was clean. After institution of sedation on her left lateral decubitus position, a rectal exam was performed. Normal rectal and anal tone was found. The Olympus colonoscope was placed into her anus and under direct visualization was advanced from the rectum to the rectosigmoid to the sigmoid to the left colon, splenic flexure, transverse colon, hepatic flexure, ascending colon, and all the way to the cecum. Circumferential visualization of the mucosa was possible. The appendix aperture was noted. The ileocecal valve was noted. No large tumors. No ulcers. No inflammatory bowel disease changes were noted. No diverticulae noted in the sigmoid colon. In the rectum, the scope was retroflexed, and no internal hemorrhoids were noted. The scope was straightened back again. The colon was decompressed, and the scope was retracted out uneventfully. The patient tolerated the procedure well without any complications, was sent to the PACU in stable condition. RECOMMENDATIONS: Continue high-fiber diet - 30-40 gm/day with daily fiber supplementation. Pantera Feliz MD, FACS, FICS.
[2024-12-07 10:24] VITALS: BP 94/67; PULSE 89; RESP 15; TEMP 36.6; O2SAT 98
[2024-12-07 10:29] VITALS: BP 95/68; PULSE 85; RESP 12; O2SAT 97
[2024-12-07 10:34] VITALS: BP 102/67; PULSE 98; RESP 14; TEMP 37.1; O2SAT 99
[2024-12-07 10:41] VITALS: BP 107/74; PULSE 90; RESP 16; TEMP 36.9; O2SAT 97
--- NOTE | 2024-12-07 11:26 | P.HP_ITS ---
History of Present Illness History of Present Illness Date Patient Seen: 12/07/24 Time Patient Seen: 11:26 Chief complaint: Screening Colonoscopy Narrative: Her dad had Stage IV colon cancer at 65 yr old, and BEAT it, thank God, it happened 10 yrs ago, and he is still there. [facility] Medical History (Updated 12/07/24 @ 11:28 by Pantera Feliz MD) Hydronephrosis, left History of renal calculi History of flank pain Dilated renal pelvis Obstructive sleep apnea of adult (~01/2019) Snoring (~11/2016) Vision disorder Seasonal allergies (~1987) Depression (~1997) Ankle pain (~2014) Plantar warts (~2007) Dysfunctional uterine bleeding (~2000) Painful menstrual periods (~1992) Irregular menstrual cycle (~2000) Heavy menstrual period (~1990) Abnormal Pap smear of cervix (~1996) Hemorrhoid (~1997) Surgical History Anesthesia Status post tubal ligation (09/14/04) Family History Father Age: 74 Colon cancer Type 2 diabetes mellitus Grandmother Breast CA Mother Age: 69 Hypertension Stroke Grandfather Age: 81 Mesothelioma Cancer Grandmother Age: 98 Diabetes mellitus Sister Age: 50 Mental health problem Sister Age: 43 Cervical cancer Social History marital status: number of children: 3 Smoking Status: Never smoker alcohol intake: current Meds Home Medications and Allergies Home Medications Medication Instructions Recorded Confirmed Type Verio Test Strips 1 unit topical 5XD Diabetes ##150 04/02/18 06/25/24 Rx blood-glucose sensor (FreeStyle #1 ea 06/04/24 06/25/24 History Mckenzie 3 Sensor device) semaglutide 14 mg tablet (Rybelsus) 14 mg PO QAM 06/04/24 12/07/24 History sodium,potassium,mag sulfates 17.5 See Rx Instructions PO .COMPLEX 11/04/24 Rx gram-3.13 gram-1.6 gram oral soln #354 mL (Suprep Bowel Prep Kit) semaglutide 14 mg tablet (Rybelsus) 14 mg PO DAILY 12/07/24 12/07/24 History Allergies Allergy/AdvReac Type Severity Reaction Status Date / Time bupropion [BUPROPION] Allergy Mild HIVES Verified 12/07/24 07:18 miconazole [MICONAZOLE] Allergy Mild swelling Verified 12/07/24 07:18 and itching Review of Systems Review of Systems Narrative: NO bleeding with the stools, and no constipation diarrhea, ROS: Yes All systems reviewed with the patient and are negative except as otherwise documented Exam Vital Signs (past 8 hours): - 12/07/24 07:32 12/07/24 10:24 12/07/24 10:29 Temperature 97.7 F 97.9 F Pulse Rate 105 H 89 85 Respiratory Rate 12 15 12 Blood Pressure 104/77 94/67 95/68 Pulse Oximetry 98 98 97 Oxygen Delivery Method Room Air Room Air Room Air 12/07/24 10:34 12/07/24 10:41 Temperature 98.7 F 98.5 F Pulse Rate 98 H 90 Respiratory Rate 14 16 Blood Pressure 102/67 107/74 Pulse Oximetry 99 97 Oxygen Delivery Method Room Air Room Air Oxygen Delivery Method Room Air Narrative Exam Narrative: Normal abd exam Assessment & Plan Assessment and plan (1) Family history of colon cancer: Problem details: Her dad had Stage IV colon cancer at 65 yr old, and BEAT it, thank God, it happened 10 yrs ago, and he is still there. Status: Acute Time-Based Coding :: [TOTAL MINUTES] spent with patient and on the chart (including review of chart, obtaining history, exam, reviewing outside data, placing orders, documenting exam and treatment plan, and counseling patient) on [DATE]. PROFEE Water/Wastewater Engineer Document charge(s): Yes
== END 2024-12-07 10:51 | disposition home or self-care (01) ==
PROVIDERS: PCP Internal Medicine; Referring Provider Surgery; Visit Provider Surgery
PROC: 0DJD8ZZ Inspection of Lower Intestinal Tract, Via Natural or Artificial Opening Endoscopic (ICD-10-PCS; CPT 45378; principal; 2024-12-07 08:15)
DX: Z12.11 Encounter for screening for malignant neoplasm of colon (principal); Z80.0 Family history of malignant neoplasm of digestive organs; E11.9 Type 2 diabetes mellitus without complications
CPT/HCPCS: G0105; J2704

== ENCOUNTER → 2025-09-24 08:52 | Outpatient (CLI) | payer OTHER, SELFPAY ==
--- NOTE | 2025-09-24 08:53 | DI.MG.S_ITS ---
MM screening mammo BI: 09/24/2025. BI-RADS: 2 CLINICAL: 45-year old female for bilateral screening mammogram. Tyrer-Cuzick lifetime risk of 12.7%. No personal or first-degree family history of breast cancer. Current reported family history of breast cancer: maternal grandmother, maternal aunt's daughter and paternal aunt. The patient had a prior right breast biopsy. PRIOR EXAMS 08/28/2024, 09/12/2023, 08/27/2023, 08/26/2022, MAMMOGRAPHY TECHNIQUE: 2D and 3D (tomosynthesis) digital mammographic views obtained, with additional images as needed for full coverage. Current study was also evaluated with a Computer Aided Detection (CAD) system. DENSITY B. There are scattered areas of fibroglandular density. MAMMOGRAPHY FINDINGS Right: Biopsy marker present on the right. There are no suspicious masses, calcifications, or other findings in the breast. No significant change from comparison. Left: No suspicious mass, asymmetry, microcalcification, or other abnormality seen. No significant change from comparison. IMPRESSION: Right * No evidence of malignancy with benign findings. Left * No evidence of malignancy. RECOMMENDATIONS Bilateral * Annual screening mammography. OVERALL ASSESSMENT CATEGORY BI-RADS-2: Benign. The [employer] recommends annual screening mammography beginning at age 40 for women with average risk of breast cancer. ELECTRONICALLY SIGNED: Mimi Ronquillo M.D. on 09/26/2025 at 09:16:38 AM PT Interpreting Station ID: [id number]
== END ==
PROVIDERS: PCP Registered Nurse; Referring Provider Registered Nurse; Visit Provider Registered Nurse
DX: Z12.31 Encounter for screening mammogram for malignant neoplasm of breast (principal); Z80.3 Family history of malignant neoplasm of breast
CPT/HCPCS: 77063; 77067

== ENCOUNTER → 2025-09-27 07:20 | Outpatient (CLI) | payer OTHER, SELFPAY ==
--- NOTE | 2025-09-27 07:21 | DI.US.S_ITS ---
PROCEDURE: US PELVIC COMPLETE INDICATIONS: DUB TECHNIQUE: Real-time scanning was performed of the pelvic organs, with image documentation. Additional endovaginal scanning was necessary due to incomplete visualization of the adnexal and endometrial structures by transabdominal scanning. COMPARISON: [facility], , US PELVIC COMPLETE, 08/26/2023, 12:40. FINDINGS: Uterus: 9.4 x 5 cm. Anteverted positioning. Endometrium is thin, measuring 1- 2 mm. IUD is seen within the endometrium. Multiple uterine fibroids, mostly intramural measuring up to 1.9 x 1.6 x 3.2 cm and 1.9 x 1.8 cm. These are slightly increased from prior imaging. Ovaries: Nonenlarged, measuring 8 mL on the right and 7 mL on the left Other: No pathologic free abdominal or pelvic fluid. IMPRESSION: Fibroid uterus, sizes slightly increased from prior. IUD seen within the endometrium. Dictated by: Andrea Valdes M.D. on 09/27/2025 at 8:01 Approved by: Andrea Valdes M.D. on 09/27/2025 at 8:03
== END ==
LOC: US 07:21
PROVIDERS: PCP Registered Nurse; Referring Provider Registered Nurse; Visit Provider Registered Nurse
DX: N92.6 Irregular menstruation, unspecified (principal); D25.1 Intramural leiomyoma of uterus; Z97.5 Presence of (intrauterine) contraceptive device
CPT/HCPCS: 76830; 76856